=== PATIENT | female | born 1955 | race Caucasian/White ===

== ENCOUNTER 2024-04-17 06:20 | Inpatient (IN) ==
--- NOTE | 2024-04-12 13:13 | Anesthesiology Consultation ---
Date of Service April 12, 2024 Assessment & Plan (1) Encounter for pre-operative examination: Chart Review Chart Review: Acceptable Risk for Surgery and Patient NOT seen in Pre Admission Testing Infectious Disease screening: Per PAT nursing assessment on 04/11/24, No known infectious disease contacts in past 10 days or current infectious disease symptoms. No recent travel outside the country. History Surgery Operation Date: 04/17/24 10:35 Proposed Procedures p T10-L1 Decomrpession and Fusion, L1-L2 Hardware Removal, Spinal Cord Monitoring - Hung Hernandez DO Height/Weight Height: 5 ft 6.5 in Weight: 81.647 kg Allergies Allergy/AdvReac Type Severity Reaction Status Date / Time lidocaine Allergy Severe "ARPIT"-THROAT Verified 04/11/24 08:37 EDEMA,ELEV.HR procaine Allergy Severe NOVOCAINE Verified 04/11/24 08:37 etodolac AdvReac Mild GI UPSET Verified 04/11/24 08:37 Medications Home Medications Medication Instructions Recorded Confirmed Last Taken Keto Gummies 1 gummy PO BID 04/11/24 04/11/24 Unknown amitriptyline 50 mg tablet 50 mg PO HS 04/11/24 04/11/24 Unknown aspirin 81 mg capsule 81 mg PO QPM 04/11/24 04/11/24 Unknown baclofen 20 mg tablet 20 mg PO TID 04/11/24 04/11/24 Unknown carvedilol 3.125 mg tablet 3.125 mg PO BID 04/11/24 04/11/24 Unknown cholecalciferol (vitamin D3) 125 125 mcg PO QAM 04/11/24 04/11/24 Unknown mcg (5,000 unit) tablet (Vitamin D3) diphenhydramine HCl 25 mg tablet 25 mg PO BID 04/11/24 04/11/24 Unknown (Allergy Relief (diphenhydramine)) duloxetine 60 mg capsule,delayed 60 mg PO BID 04/11/24 04/11/24 Unknown release empagliflozin 25 mg tablet 25 mg PO HS 04/11/24 04/11/24 Unknown (Jardiance) gabapentin 400 mg capsule 400 mg PO TID 04/11/24 04/11/24 Unknown hydrocodone 7.5 mg-acetaminophen 1 tab PO Q8H PRN Pain 04/11/24 04/11/24 Unknown 325 mg tablet insulin glargine U-300 conc 300 48 unit subcut HS 04/11/24 04/11/24 Unknown unit/mL (3 mL) subcutaneous pen (Toujeo Max U-300 SoloStar) linaclotide 290 mcg capsule 290 mcg PO QAM 04/11/24 04/11/24 Unknown (Linzess) lisinopril 20 0.5 tab PO QAM 04/11/24 04/11/24 Unknown mg-hydrochlorothiazide 25 mg tablet lovastatin 40 mg tablet 80 mg PO HS 04/11/24 04/11/24 Unknown magnesium oxide 800 mg PO QPM 04/11/24 04/11/24 Unknown meloxicam 15 mg tablet 15 mg PO QAM 04/11/24 04/11/24 Unknown metformin 1,000 mg tablet 1,000 mg PO BID 04/11/24 04/11/24 Unknown montelukast 10 mg tablet 10 mg PO QPM 04/11/24 04/11/24 Unknown omeprazole 20 mg capsule,delayed 20 mg PO BID 04/11/24 04/11/24 Unknown release semaglutide 2 mg/dose (8 mg/3 mL) 2 mg subcut Q7D 04/11/24 04/11/24 Unknown subcutaneous pen injector (Ozempic) sennosides 8.6 mg-docusate sodium 2 tab-cap PO BID PRN Constipation 04/11/24 04/11/24 Unknown 50 mg tablet (Stimulant Laxative Plus) Past Medical History Medical History (Updated 04/12/24 @ 13:38 by Renae Polk PA-C) Aortic regurgitation moderate, stable Aortic stenosis mild per 02/07/24 ECHO Ascending aorta dilation Ascending aorta is dilated at 4.0cm per 02/07/24 ECHO Chronic depression Chronic dyspnea Per 02/07/24 Cardio note "has chronic dyspnea on mild to moderate exertion, resolves in a few moments rest, not present at rest"... "unchanged from baseline, CCS Class II-III with normal nuclear stress test 12/2021, likely 2/2 deconditioning" Diabetes mellitus, type 2 IDDM GERD (gastroesophageal reflux disease) History of anesthesia reaction "was awake often during the anesthesia for the nerve block placement on the base of her skull, had to give her a lot more and then was slow to wake after" Hx of headache "had to have nerve block in the past" Hyperlipidemia Hypertension IBS (irritable bowel syndrome) Psoriasis Sleep apnea CPAP Past Surgical History Surgical History History of ankle surgery left ankle "to remove arthritis" History of total abdominal hysterectomy History of total right knee replacement Hx of bilateral oophorectomy w/bladder tacking surgery Hx of cardiac cath "years ago," [facility]; f/u [facility] Hx of cholecystectomy Hx of colonoscopy Hx of lumbosacral spine surgery ~2012, L4-L5 and tailbone ~2018, L1-L3 Hx of tonsillectomy Social History Smoking Status: Never smoker Do You Dip or Chew Tobacco: No Hx Alcohol Use: Yes alcohol intake frequency: holidays/special occasions only Hx Substance Use: No substance use type: does not use Lab Results Anesthesia Preop Results Results Anesthesia Widget: Na 141 mmol/L (136-145) 04/10/24 K 3.7 mmol/L (3.5-5.1) 04/10/24 Cl 102 mmol/L (98-107) 04/10/24 CO2 33 mmol/L (21-32) H 04/10/24 BUN 17 mg/dl (6-23) 04/10/24 Creat 0.83 mg/dl (0.6-1.2) 04/10/24 Glucose Level 150 mg/dl (70-99(Fasting)) H 04/10/24 PT 10.9 Seconds (9.0-12.0) 04/10/24 PTT 25 Seconds (21-31) 04/10/24 INR 1.0 (0.9-1.1) 04/10/24 HA1c 6.5 % (4.5-5.6) H 04/10/24 Urine Color Yellow 04/10/24 Urine Appearance Clear (Clear) 04/10/24 Urine pH 5.5 (4.5-7.5) 04/10/24 Urine Specific [place] 1.024 (1.000-1.030) 04/10/24 Urine Protein Negative (Negative) 04/10/24 Urine Glucose (UA) 3+ (Negative) H 04/10/24 Urine Ketones Negative (Negative) 04/10/24 Urine Blood Negative (Negative) 04/10/24 Urine Nitrite Negative (Negative) 04/10/24 Urine Bilirubin Negative (Negative) 04/10/24 Urine Urobilinogen Negative (Negative) 04/10/24 Urine Leukocyte Esterase Trace (Negative) H 04/10/24 Urine WBC (Auto) 6-10 /hpf (0-5) H 04/10/24 Urine RBC (Auto) 0-2 /hpf (0-2) 04/10/24 Urine Hyaline Casts (Auto) 0-2 /lpf (0-2) 04/10/24 Urine Epithelial Cells (Auto) 0-2 /hpf (0-2) 04/10/24 Urine Bacteria (Auto) None Seen (None Seen) 04/10/24 Blood Type B Positive 04/10/24 Antibody Screen NEGATIVE 04/10/24 Testing Laboratory Results 04/10/24: urine culture: more than three types of organisms present, all low counts mixed probable skin veda. Chest X-Ray Date: 04/10/24 Findings: + NAD mild bibasilar atelectasis Echocardiogram Date: 02/07/24 EF: 55-60% RWMA: + none Gr I DD. Ascending aorta is dilated at 4.0cm The aortic valve is restricted and thickened. Mod AR. Mild . (ZENAIDA 1.3cm2, mean gradient 11mmHg) Mitral valve is thickened. Mild TR. Stress Test Date: 12/21/21 Type: nuclear Findings: + WNL ECG Response: Non-diagnostic Symptoms EX: Chest discomfort typical of angina SPECT Ischemia: None SPECT Infarct: None LVEF: 63% LV WM: normal Conclusions: Probability of CAD: Relatively low Probability of Ischemia: Relatively low Extent of Ischemia: No significant ischemia Severity of Ischemia: No significant ischemia Risk (Mortality/Coronary Events): Low risk
[2024-04-17] MEDS ORDERED: GLYCOPYRROLATE 0.2 MG/ML VIAL ONE (07:03)
[2024-04-17] MEDS ORDERED: LIDOCAINE 2% 2 ML VIAL/AMP(20MG/ML) INFIL ONE (07:03)
[2024-04-17] MEDS ORDERED: PROPOFOL IV EMULSION 10 MG/ML 20 ML VIAL IV ONE (07:03)
[2024-04-17] MEDS ORDERED: fentaNYL citrate PF 100 MCG/2 ML VIAL ONE ×2 (07:03→08:29)
[2024-04-17] MEDS ORDERED: DEXAMETHASONE SOD INJ 4 MG/ML VIAL ONE (07:03)
[2024-04-17] MEDS ORDERED: MIDAZOLAM HCL 1 MG/ML 2ML VIAL ONE (07:03)
[2024-04-17] MEDS ORDERED: ROCURONIUM BROMIDE 10 MG/ML 5 ML VIAL IV ONE (07:03)
[2024-04-17] MEDS ORDERED: ONDANSETRON INJ 2 MG/ML 2 ML VIAL ONE (07:03)
[2024-04-17] MEDS ORDERED: SUGAMMADEX SODIUM 200 MG/2 ML VIAL IV ONE (07:13)
[2024-04-17] MEDS: ACETAMINOPHEN 500 MG TAB PO SCH (07:13)
[2024-04-17] MEDS: CeleBREX 200 MG CAP PO SCH (07:14)
[2024-04-17] MEDS: LR 15ML/HR IV SCH (07:14)
[2024-04-17] MEDS: GABAPENTIN 300 MG CAP PO SCH (07:14)
--- NOTE | 2024-04-17 07:15 | Anesthesiology Consultation ---
Date of Service April 17, 2024 History Surgery Operation Date: 04/17/24 07:45 Proposed Procedures p T10-L1 Decomrpession and Fusion, L1-L2 Hardware Removal, Spinal Cord Monitoring - Hung Hernandez DO Height/Weight Height: 5 ft 6.5 in Weight: 85.5 kg Allergies Allergy/AdvReac Type Severity Reaction Status Date / Time lidocaine Allergy Severe "ARPIT"-THROAT Verified 04/17/24 06:41 EDEMA,ELEV.HR procaine Allergy Severe NOVOCAINE Verified 04/17/24 06:41 etodolac AdvReac Mild GI UPSET Verified 04/17/24 06:41 Medications Home Medications Medication Instructions Recorded Confirmed Last Taken Keto Gummies 1 gummy PO BID 04/11/24 04/17/24 04/13/24 amitriptyline 50 mg tablet 50 mg PO HS 04/11/24 04/17/24 04/16/24 21:30 aspirin 81 mg capsule 81 mg PO QPM 04/11/24 04/17/24 04/16/24 18:00 baclofen 20 mg tablet 20 mg PO TID 04/11/24 04/17/24 04/16/24 21:30 carvedilol 3.125 mg tablet 3.125 mg PO BID 04/11/24 04/17/24 04/17/24 05:30 cholecalciferol (vitamin D3) 125 125 mcg PO QAM 04/11/24 04/17/24 04/16/24 21:30 mcg (5,000 unit) tablet (Vitamin D3) diphenhydramine HCl 25 mg tablet 25 mg PO BID 04/11/24 04/17/24 04/16/24 21:30 (Allergy Relief (diphenhydramine)) duloxetine 60 mg capsule,delayed 60 mg PO BID 04/11/24 04/17/24 04/17/24 05:30 release empagliflozin 25 mg tablet 25 mg PO HS 04/11/24 04/17/24 04/16/24 21:30 (Jardiance) gabapentin 400 mg capsule 400 mg PO TID 04/11/24 04/17/24 04/17/24 05:30 hydrocodone 7.5 mg-acetaminophen 1 tab PO Q8H PRN Pain 04/11/24 04/17/24 04/16/24 21:30 325 mg tablet insulin glargine U-300 conc 300 48 unit subcut HS 04/11/24 04/17/24 04/16/24 21:30 unit/mL (3 mL) subcutaneous pen 48 units (Toujeo Max U-300 SoloStar) linaclotide 290 mcg capsule 290 mcg PO QAM 04/11/24 04/17/24 04/16/24 07:30 (Linzess) lisinopril 20 0.5 tab PO QAM 04/11/24 04/17/24 04/17/24 05:30 mg-hydrochlorothiazide 25 mg tablet lovastatin 40 mg tablet 80 mg PO HS 04/11/24 04/17/24 04/16/24 21:30 magnesium oxide 800 mg PO QPM 04/11/24 04/17/24 04/16/24 18:00 meloxicam 15 mg tablet 15 mg PO QAM 04/11/24 04/17/24 04/15/24 metformin 1,000 mg tablet 1,000 mg PO BID 04/11/24 04/17/24 04/17/24 05:30 montelukast 10 mg tablet 10 mg PO QPM 04/11/24 04/17/24 04/16/24 18:00 omeprazole 20 mg capsule,delayed 20 mg PO BID 04/11/24 04/17/24 04/17/24 05:30 release semaglutide 2 mg/dose (8 mg/3 mL) 2 mg subcut Q7D 04/11/24 04/17/24 04/03/24 subcutaneous pen injector (Ozempic) sennosides 8.6 mg-docusate sodium 2 tab-cap PO BID PRN Constipation 04/11/24 04/17/24 04/10/24 50 mg tablet (Stimulant Laxative Plus) Active Medications Generic Name Dose Route Start Last Admin Trade Name Freq PRN Reason Stop Dose Admin Acetaminophen 1,000 mg 04/17/24 06:00 04/17/24 07:13 Acetaminophen 500 Mg Tab PO 04/17/24 18:00 1,000 mg PREOP ASAD Administration Celecoxib 200 mg 04/17/24 06:00 04/17/24 07:14 Celebrex 200 Mg Cap PO 04/17/24 18:00 200 mg PREOP ASAD Administration Gabapentin 300 mg 04/17/24 06:00 04/17/24 07:14 Gabapentin 300 Mg Cap PO 04/17/24 18:00 300 mg PREOP ASAD Administration Lactated Ringer's 1,000 mls @ 15 mls/hr 04/17/24 06:00 04/17/24 07:14 Lr IV 04/18/24 05:59 15 mls/hr .Q24H ASAD Administration NPO Date Last Intake of Fluids: 04/16/24 Time Last Intake of Fluids: 21:30 Last Intake of Fluids Comment: 30 sip water for meds Date Last Intake of Solids: 04/16/24 Time Last Intake of Solids: 18:00 Past Medical History Medical History Ascending aorta dilation Ascending aorta is dilated at 4.0cm per 02/07/24 ECHO Aortic stenosis mild per 02/07/24 ECHO Aortic regurgitation moderate, stable Chronic dyspnea Per 02/07/24 Cardio note "has chronic dyspnea on mild to moderate exertion, resolves in a few moments rest, not present at rest"... "unchanged from baseline, CCS Class II-III with normal nuclear stress test 12/2021, likely 2/2 deconditioning" History of anesthesia reaction "was awake often during the anesthesia for the nerve block placement on the base of her skull, had to give her a lot more and then was slow to wake after " Hx of headache "had to have nerve block in the past" Chronic depression Sleep apnea CPAP Psoriasis Diabetes mellitus, type 2 IDDM IBS (irritable bowel syndrome) GERD (gastroesophageal reflux disease) Hyperlipidemia Hypertension Past Surgical History Surgical History Hx of cardiac cath "years ago," angina, [facility], no stents; f/u [facility] History of ankle surgery left ankle "to remove arthritis" Hx of lumbosacral spine surgery ~2011, L4-L5 and tailbone ~2018, L1-L3 History of total right knee replacement Hx of bilateral oophorectomy w/bladder tacking surgery History of total abdominal hysterectomy Hx of cholecystectomy Hx of colonoscopy Hx of tonsillectomy Social History Smoking Status: Never smoker Do You Dip or Chew Tobacco: No Hx Alcohol Use: Yes alcohol intake frequency: holidays/special occasions only Hx Substance Use: No substance use type: does not use Physical Exam Vital Signs Last Vital Signs Temp 37 C 04/17/24 06:52 Pulse 91 H 04/17/24 06:52 Resp 20 04/17/24 06:52 BP 153/98 H 04/17/24 06:52 Pulse Ox 94 04/17/24 06:52 O2 Del Method Room Air 04/17/24 06:52 Testing Laboratory Results 04/17/24 06:39 POC Glucose 93 Chest X-Ray Date: 04/10/24 Findings: + NAD mild bibasilar atelectasis Echocardiogram Date: 02/07/24 EF: 55-60% RWMA: + none Gr I DD. Ascending aorta is dilated at 4.0cm The aortic valve is restricted and thickened. Mod AR. Mild . (EZNAIDA 1.3cm2, mean gradient 11mmHg) Mitral valve is thickened. Mild TR. Stress Test Date: 12/21/21 Type: nuclear Findings: + WNL ECG Response: Non-diagnostic Symptoms EX: Chest discomfort typical of angina SPECT Ischemia: None SPECT Infarct: None LVEF: 63% LV WM: normal Conclusions: Probability of CAD: Relatively low Probability of Ischemia: Relatively low Extent of Ischemia: No significant ischemia Severity of Ischemia: No significant ischemia Risk (Mortality/Coronary Events): Low risk
[2024-04-17] MEDS ORDERED: ATROPINE SULFATE 0.1 MG/ML 10ML SYR IV PRN (07:18)
[2024-04-17] MEDS ORDERED: ePHEDrine sulfate 50 MG/ML AMP IV PRN (07:18)
[2024-04-17] MEDS ORDERED: HYDROmorphone INJ 1 MG/ML SYRINGE IV PRN (07:18)
[2024-04-17] MEDS ORDERED: DROPERIDOL 5 MG/2 ML VIAL IV PRN (07:18)
--- NOTE | 2024-04-17 07:38 | History & Physical Bridge Note ---
Date of Service April 17, 2024 History & Physical Bridge Note I have examined the patient, reviewed the History & Physical and in the interval since the performance of the History & Physical I have noted the following changes of clinical significance: no changes noted
--- NOTE | 2024-04-17 07:39 | History & Physical Report ---
Date of Service April 17, 2024 Assessment & Plan (1) Neurogenic claudication due to lumbar spinal stenosis: Plan: T10-L1 decompression and fusion, L1-L2 hardware removal History of Present Illness Chief Complaint: Back and leg pain Primary Care Provider: Sirisha Gonzalez PA-C This is a 69-year-old female presents with chronic persistent back and leg pain after failing course of nonoperative care she is here for surgical intervention. Allergies Allergy/AdvReac Type Severity Reaction Status Date / Time lidocaine Allergy Severe "ARPIT"-THROAT Verified 04/17/24 06:41 EDEMA,ELEV.HR procaine Allergy Severe NOVOCAINE Verified 04/17/24 06:41 etodolac AdvReac Mild GI UPSET Verified 04/17/24 06:41 Home Medications Medication Instructions Recorded Confirmed Type Keto Gummies 1 gummy PO BID 04/11/24 04/17/24 History amitriptyline 50 mg tablet 50 mg PO HS 04/11/24 04/17/24 History aspirin 81 mg capsule 81 mg PO QPM 04/11/24 04/17/24 History baclofen 20 mg tablet 20 mg PO TID 04/11/24 04/17/24 History carvedilol 3.125 mg tablet 3.125 mg PO BID 04/11/24 04/17/24 History cholecalciferol (vitamin D3) 125 125 mcg PO QAM 04/11/24 04/17/24 History mcg (5,000 unit) tablet (Vitamin D3) diphenhydramine HCl 25 mg tablet 25 mg PO BID 04/11/24 04/17/24 History (Allergy Relief (diphenhydramine)) duloxetine 60 mg capsule,delayed 60 mg PO BID 04/11/24 04/17/24 History release empagliflozin 25 mg tablet 25 mg PO HS 04/11/24 04/17/24 History (Jardiance) gabapentin 400 mg capsule 400 mg PO TID 04/11/24 04/17/24 History hydrocodone 7.5 mg-acetaminophen 1 tab PO Q8H PRN Pain 04/11/24 04/17/24 History 325 mg tablet insulin glargine U-300 conc 300 48 unit subcut HS 04/11/24 04/17/24 History unit/mL (3 mL) subcutaneous pen (Toujeo Max U-300 SoloStar) linaclotide 290 mcg capsule 290 mcg PO QAM 04/11/24 04/17/24 History (Linzess) lisinopril 20 0.5 tab PO QAM 04/11/24 04/17/24 History mg-hydrochlorothiazide 25 mg tablet lovastatin 40 mg tablet 80 mg PO HS 04/11/24 04/17/24 History magnesium oxide 800 mg PO QPM 04/11/24 04/17/24 History meloxicam 15 mg tablet 15 mg PO QAM 04/11/24 04/17/24 History metformin 1,000 mg tablet 1,000 mg PO BID 04/11/24 04/17/24 History montelukast 10 mg tablet 10 mg PO QPM 04/11/24 04/17/24 History omeprazole 20 mg capsule,delayed 20 mg PO BID 04/11/24 04/17/24 History release semaglutide 2 mg/dose (8 mg/3 mL) 2 mg subcut Q7D 04/11/24 04/17/24 History subcutaneous pen injector (Ozempic) sennosides 8.6 mg-docusate sodium 2 tab-cap PO BID PRN Constipation 04/11/24 04/17/24 History 50 mg tablet (Stimulant Laxative Plus) Past Med/Surg History Problem List (Updated 04/17/24 @ 07:39 by Hung Hernandez DO) Neurogenic claudication due to lumbar spinal stenosis Encounter for pre-operative examination Medical History (Updated 04/17/24 @ 07:39 by Hung Hernandez DO) Ascending aorta dilation Ascending aorta is dilated at 4.0cm per 02/07/24 ECHO Aortic stenosis mild per 02/07/24 ECHO Aortic regurgitation moderate, stable Chronic dyspnea Per 02/07/24 Cardio note "has chronic dyspnea on mild to moderate exertion, resolves in a few moments rest, not present at rest"... "unchanged from baseline, CCS Class II-III with normal nuclear stress test 12/2021, likely 2/2 deconditioning" History of anesthesia reaction "was awake often during the anesthesia for the nerve block placement on the base of her skull, had to give her a lot more and then was slow to wake after" Hx of headache "had to have nerve block in the past" Chronic depression Sleep apnea CPAP Psoriasis Diabetes mellitus, type 2 IDDM IBS (irritable bowel syndrome) GERD (gastroesophageal reflux disease) Hyperlipidemia Hypertension Surgical History Hx of cardiac cath "years ago," angina, [facility], no stents; f/u [facility] History of ankle surgery left ankle "to remove arthritis" Hx of lumbosacral spine surgery ~2011, L4-L5 and tailbone ~2018, L1-L3 History of total right knee replacement Hx of bilateral oophorectomy w/bladder tacking surgery History of total abdominal hysterectomy Hx of cholecystectomy Hx of colonoscopy Hx of tonsillectomy Social History Smoking Status: Never smoker Second Hand Exposure: Yes (hx); Do You Dip or Chew Tobacco: No; Tobacco Cessation Education Requested by Patient: No Hx Alcohol Use: Yes Hx Substance Use: No Preferred Language: [place]an Communication Ability: Effective Neurology Stroke Physician Required: No Beliefs That Will Affect Care: None Current Living Situation: Spouse Other Information That Helps Us Care for You: No Feels Safe at Home: Yes Safety Concerns: Feels Safe At This Time Assistive Devices: Denture - Upper, Glasses and Walker Assistive Devices Comment: partial upper denture Physical Exam Physical Exam: Patient is alert and oriented Heart regular rhythm Lungs clear Results & Data Results & Data Vital Signs (Past 12 Hours) Vital Signs Temp Pulse Resp BP Pulse Ox O2 Del Method 04/17/24 06:52 Room Air 04/17/24 06:52 37 C 91 H 20 153/98 H 94 Room Air
[2024-04-17] MEDS ORDERED: PHENYLEPHRINE HCL 25 MG/250 ML NSS IV ONE (07:40)
[2024-04-17] MEDS: ceFAZolin 2000MG 2,000 MG/15 ML SYR IV SCH ×2 (07:45→16:50)
[2024-04-17] MEDS: BUPIVACAINE/EPINEPHRINE 0.25% 1:200,000 30 ML VIAL ONE (08:39)
[2024-04-17] MEDS: ceFAZolin 330 MG/ML 1 GM VIAL ONE (08:40)
[2024-04-17] MEDS: FLOSEAL HEMOSTATIC MATRIX 10ML TOP ONE (10:16)
--- NOTE | 2024-04-17 10:28 | Operative Report ---
Post Operative Report Pre & Post Diagnosis Operation Date: 04/17/24 07:45 Pre-Op Diagnosis: Neurogenic claudication due to lumbar spinal stenosis Post-Op Diagnosis: Neurogenic claudication due to lumbar spinal stenosis I identified the patient and participated in the time-out.: Yes Procedure Operation Date: 04/17/24 07:45 Actual Procedures #1 removal of posterior instrumentation L1-L2. #2 exploration of fusion L1-L2. #3 decompression T11-T12 and T12-L1. #4 posterior spinal fusion T10-L1. #5 placed posterior instrumentation T10-L2 with connectors. #6 interbody fusion T12-L1. #7 placement of Spira 8 x 22 mm at T12-L1. #8 placement locally harvested morselized autograft posterior gutters. #9 placement infuse collagen sponge combined with Koros in the posterior lateral gutters and os design interbody space. #10 placement of versa wrap of the exposed dura. Surgeon Hung Hernandez, Manager Entry Haylee Christensen Estimated Blood Loss 250 Findings Consistent with Post-Op Diagnosis Specimens None Indications This is a 69-year-old female who presents publish diagnosis of failed course of nonoperative care is here for surgical invention. Description of Procedure Patient was met with identified informed consent obtained. Patient was then taken to the operative suite underwent intubation placed in a prone position on the Yair table top the Mainor frame. All bony promises well-padded eyes inspected to ensure no external pressure placed upon the. This point the thor acolumbar spine was prepped and draped in the normal sterile fashion. Sharp dissection with the assistance of Bovie cautery from down to and exposing the lamina transverse processes of [id number] and instrumentation at L1-L2 bilaterally. I then proceeded move the hardware at L1-L2 including the connector. Explored the fusion mass at this level noting it being mature and intact. I then performed a complete laminectomy of T12 with bilateral medial facetectomies and foraminotomies addressing severe spinal stenosis followed by partial laminectomy of T11 with bilateral medial facetectomies. Pedicle screws then placed in [id number] L1-L2 bilaterally with assistance of fluoroscopy. By way of transforaminal approach and right a complete discectomy of T12-L1 was performed endplates guarded to subcortical bleeding bone and an 8 x 22 mm Spira cage filled with os designed tapped in position. The proper size rods were then contoured and placed attaching to a connector at the L 2 L3 level and locked into position. The transverse processes of T11-T12 L1-L2 were then burred to subcortical bleeding bone. Infuse collagen sponge combined with Koros and local autograft placed in the posterior gutters. Versa wrap placed over the exposed dura. 15 round CHERELLE drain inserted. This incision was then closed with 1 Vicryl fascia 2-0 Vicryl subcutaneously and 4 Monocryl for final skin closure. Steri- Strips sterile dressing placed. Patient waken taken PACU stable condition. Please note spinal cord monitoring visualized at the procedure no changes noted. Haylee Christensen is present at the entire surgery and while the patient positioning complex portions of the surgery and final skin closure. Im ordering 20 grams of [place] Collagen Powder (ClearFit [id number]) to treat an incision wound that was caused by a spine procedure. The incision is approximately 2 cm(W) x 4 cm(L) into the joint (D) in size and is a full thickness wound. [place] collagen comes in 1 gram packets so 20 packets were ordered. Given the size of the wound, with light to moderate exudate I chose to order a 20 day supply. The patient will be provided instructions for proper application of the collagen wound kit. The patient will be asked to apply the collagen powder daily and then cover it with sterile dressings dispensed. Collagen was selected as I expect the collagen to attract monocytes and fibroblasts, act as a sacrificial substrate for MMPs, and ultimately proved a matrix for tissue and vessel growth. The collagen will act as a primary dressing in this scenario. It is medically necessary for proper healing of these wounds to improve bioavailability and contact with each wound surface, this is also to help prevent infection of wounds and promote healing ultimately leading to a better healing outcome and limit the risk of infection. I attest to the content of the Intraoperative Record and any orders documented therein. Any exceptions are noted below.
--- NOTE | 2024-04-17 10:35 | Fluoroscopy Report ---
FL thoracic spine 2V CLINICAL HISTORY: T10-L1 DECOMP AND FUSION COMPARISON STUDY: None. FLUOROSCOPY TIME: 25.2 seconds. Ka,r : 19.27 mGy FLUOROSCOPIC IMAGES: 2 FINDINGS: Exact localization is difficult given partial visualization of the lumbar spine. These imag es demonstrate interbody spacer at one level as well as a multilevel decompression and fusion. Visual ized portions of the hardware are intact. IMPRESSION: Fluoroscopy provided during multilevel decompression and fusion, as described above. ACT 112: Negative or not required by law. Electronically signed by: Jonah Alford M.D. 04/17/2024 10:33 AM
[2024-04-17] MEDS ORDERED: PHENYLEPHRINE/NSS 25 MG/250 ML BAG IV PRN (10:51)
[2024-04-17] MEDS ORDERED: PHARMACY GLYCEMIC MGMT CONSULT PRN (12:55)
[2024-04-17] MEDS ORDERED: LORazepam 0.5 MG TAB PO PRN (12:55)
[2024-04-17] MEDS ORDERED: FAMOTIDINE 20 MG TAB PO PRN (12:55)
[2024-04-17] MEDS ORDERED: hydrOXYzine HCl 25 MG TAB PO PRN (12:55)
[2024-04-17] MEDS ORDERED: ALUMINUM/MAGNESIUM SUSP 30 ML UDC PO PRN (12:55)
[2024-04-17] MEDS ORDERED: LORazepam 2 MG/1 ML VIAL IV PRN (12:55)
[2024-04-17] MEDS ORDERED: PROMETHAZINE 12.5 MG/50.5 ML BAG IV PRN (12:55)
[2024-04-17] MEDS ORDERED: METOCLOPRAMIDE HCL INJ 5 MG/ML 2 ML VIAL IV PRN (12:55)
[2024-04-17] MEDS ORDERED: ONDANSETRON 4 MG OD TAB PO PRN (12:55)
[2024-04-17] MEDS ORDERED: DO NOT ADMINISTER PNEUMOCOCCAL VACCINE PRN (12:55)
[2024-04-17] MEDS ORDERED: diphenhydrAMINE Capsule 25 MG CAP PO PRN (12:55)
[2024-04-17] MEDS ORDERED: NALOXONE HCL 0.4 MG/1 ML VIAL/CARP IV PRN (12:55)
[2024-04-17] MEDS ORDERED: DO NOT ADMINISTER FLU VACCINE PRN (12:55)
[2024-04-17] MEDS ORDERED: traMADol HCL 50 MG TABLET PO PRN (12:55)
[2024-04-17] MEDS ORDERED: SOD PHOSPHATE/SOD BIPHOSPHATE ENEMA 132 ML BTL PR PRN (12:55)
[2024-04-17] MEDS ORDERED: GLUCAGON FOR INJ 1 MG VIAL SQ PRN (13:02)
[2024-04-17] MEDS ORDERED: GLUCOSE 40% GEL 15 GM TUBE PO PRN (13:02)
[2024-04-17] MEDS ORDERED: CARBOHYDRATES FOR HYPOGLYCEMIA PO PRN (13:02)
[2024-04-17] MEDS ORDERED: DEXTROSE 50% 50 ML SYRINGE IV PRN (13:02)
[2024-04-17] MEDS ORDERED: GLUCOSE 10 TAB/TUBE PO PRN (13:02)
--- NOTE | 2024-04-17 13:40 | Anesthesiology Progress Note ---
Date of Service April 17, 2024 Anesthesia Post Procedure Vital Signs Vital Signs: Temp Pulse Pulse Resp BP Pulse Ox O2 Del Method 04/17/24 13:06 36.3 C L 91 H 16 120/76 95 Oxymask 04/17/24 12:20 85 16 103/61 95 Oxymask 04/17/24 12:05 86 12 115/71 94 Oxymask 04/17/24 11:55 88 12 125/67 92 Nasal Cannula 04/17/24 11:45 86 13 101/66 93 Nasal Cannula 04/17/24 11:35 87 12 105/61 94 Oxymask 04/17/24 11:25 37.1 C 88 14 112/60 95 Oxymask 04/17/24 11:15 89 12 115/63 95 Oxymask 04/17/24 11:05 89 12 124/55 L 98 Oxymask 04/17/24 10:55 84 14 115/63 99 Oxymask 04/17/24 10:45 78 12 104/56 L 93 Oxymask 04/17/24 10:42 91/51 L 04/17/24 10:38 36.7 C 78 10 L 67/47 L 95 Oxymask 04/17/24 06:52 Room Air 04/17/24 06:52 37 C 91 H 20 153/98 H 94 Room Air O2 Flow Rate 04/17/24 13:06 04/17/24 12:20 3 04/17/24 12:05 3 04/17/24 11:55 4 04/17/24 11:45 4 04/17/24 11:35 3 04/17/24 11:25 3 04/17/24 11:15 4 04/17/24 11:05 4 04/17/24 10:55 10 04/17/24 10:45 10 04/17/24 10:42 04/17/24 10:38 10 04/17/24 06:52 04/17/24 06:52 Pain Intensity Back: Pain Intensity: 9 Transfer of Care Handoff Completed per policy Notes Mental Status: alert / awake / arousable and participated in evaluation Nausea / Vomiting: adequately controlled Pain: adequately controlled Airway Patency, RR, SpO2: stable & adequate BP & HR: stable & adequate Hydration State: stable & adequate Anesthetic Complications: no major complications apparent and Pt Satisfied with anesthetic care
--- NOTE | 2024-04-17 13:51 | Consultation ---
Date of Consultation April 17, 2024 Assessment & Plan (1) Neurogenic claudication due to lumbar spinal stenosis: (2) Diabetes mellitus, type 2: (3) Hypertension: (4) Hyperlipidemia: (5) Sleep apnea: Plan This is a 69-year-old female who has a significant past medical history of T2DM, HTN, HLD, aortic stenosis, TY, psoriasis who presents for elective thoracic surgery by Dr. Hernandez. Thoracic/Lumbar spinal stenosis with neurogenic claudication S/P T10-T11 Fusion with L1-L2 hardware removal by Dr. Hernandez, POD # 0 EBL 250ml, CHERELLE drain 95ml pain/wound management per ortho activity and therapy as directed by ortho pre op hgb unknown as I do not see a CBC done pre op in our system T2DM, controlled a1c 6.5 pre op hold jardiance and metformin, she is on 48 Units of Toujeo at HS continue lantus/novolog per protocol, glycemic pharmacy on board appreciate their management TY: CPAP at HS HTN: Bp controlled, continue coreg with parameters, hold lisinopril/hctz until pressure reassessed in a.m HLD: Chronic, stable, continue statin Valvular heart disease/Enlargement of thoracic aortic: follows cardiology [facility] Dr. Bosch, pre op echo reviewed. Depression: chronic, stable on Cymbalta and amitriptyline DVT ppx: per primary FULL CODE PCP: Sirisha Gonzalez PA-C Dispo: per primary Pt was seen and examined in collaboration with Dr. Garza, please see addendum Thank you for this consultation. We will follow the patient with you during their hospital stay. You can reach a member of the [facility] Hospitalist Team 24/01 via hospitalist role on tiger text. I spent a total of 46 minutes minutes reviewing notes, outpatient records, labs, medication, coordinating, documenting and providing care for this patient excluding time spent in the performance of separately billed services. Supervising Physician Co-Signing Physician Notes 69-year-old female with a history of diastolic dysfunction, diabetes mellitus type 2, obstructive sleep apnea, hypertension, hyperlipidemia and aortic stenosis. Patient is status post T10'sL1 laminectomy and decompression surgery. Patient is seen postop today. Her is present. She is having some nausea and some postoperative incisional pain. She has just been medicated for both. She denies chest pain or shortness of breath currently. She does have a Venturi mask in place currently. General- adult female seen at bedside with her spouse present. Head- atraumatic Eyes- PERRL, EOMI, anicteric ENT- oropharynx clear Neck- supple, no JVD, no adenopathy, no thyromegaly; carotids +2/2, no bruits appreciated Lungs- clear to auscultation and percussion Heart- regular rhythm; no murmur, no gallop, no rub appreciated Abdomen- normal bowel sounds, soft, nontender, no masses or hepatosplenomegaly Extremities- no pretibial edema, no calf tenderness; peripheral pulses intact Neuro- alert, oriented x 3; PERRL, EOMI; she has good sensation in both toes bilaterally Skin- warm & dry Chart and data reviewed. Total of 22 minutes spent in the care of this patient. I agree with the advanced practitioners assessment and plan as outlined above. Thank you Dr. Hernandez for the consult. We will follow. History of Present Illness Requesting Physician: Dr. Hernandez Reason for Consultation: post op med management Attending Physician: Hung Hernandez, History of Present Illness This is a 69-year-old female who has a significant past medical history of T2DM, HTN, HLD, aortic stenosis, TY, psoriasis who presents for elective thoracic surgery by Dr. Hernandez. She underwent a T10-L1 decompression fusion along with L1-L2 hardware removal. Her medical and cardiology clearance notes were reviewed. She follows with Dr. Bosch of [facility] for cardiology. She had echocardiogram on 02/07/2024 which revealed normal LVEF, mild aortic stenosis and moderate aortic regurgitation, dilated ascending aorta at 4.0 cm and grade 1 diastolic dysfunction. Allergies Allergy/AdvReac Type Severity Reaction Status Date / Time lidocaine Allergy Severe "ARPIT"-THROAT Verified 04/17/24 06:41 EDEMA,ELEV.HR procaine Allergy Severe NOVOCAINE Verified 04/17/24 06:41 etodolac AdvReac Mild GI UPSET Verified 04/17/24 06:41 Home Medications Medication Instructions Recorded Confirmed Type Keto Gummies 1 gummy PO BID 04/11/24 04/17/24 History amitriptyline 50 mg tablet 50 mg PO HS 04/11/24 04/17/24 History aspirin 81 mg capsule 81 mg PO QPM 04/11/24 04/17/24 History baclofen 20 mg tablet 20 mg PO TID 04/11/24 04/17/24 History carvedilol 3.125 mg tablet 3.125 mg PO BID 04/11/24 04/17/24 History cholecalciferol (vitamin D3) 125 125 mcg PO QAM 04/11/24 04/17/24 History mcg (5,000 unit) tablet (Vitamin D3) diphenhydramine HCl 25 mg tablet 25 mg PO BID 04/11/24 04/17/24 History (Allergy Relief (diphenhydramine)) duloxetine 60 mg capsule,delayed 60 mg PO BID 04/11/24 04/17/24 History release empagliflozin 25 mg tablet 25 mg PO HS 04/11/24 04/17/24 History (Jardiance) gabapentin 400 mg capsule 400 mg PO TID 04/11/24 04/17/24 History hydrocodone 7.5 mg-acetaminophen 1 tab PO Q8H PRN Pain 04/11/24 04/17/24 History 325 mg tablet insulin glargine U-300 conc 300 48 unit subcut HS 04/11/24 04/17/24 History unit/mL (3 mL) subcutaneous pen (Toujeo Max U-300 SoloStar) linaclotide 290 mcg capsule 290 mcg PO QAM 04/11/24 04/17/24 History (Linzess) lisinopril 20 0.5 tab PO QAM 04/11/24 04/17/24 History mg-hydrochlorothiazide 25 mg tablet lovastatin 40 mg tablet 80 mg PO HS 04/11/24 04/17/24 History magnesium oxide 800 mg PO QPM 04/11/24 04/17/24 History meloxicam 15 mg tablet 15 mg PO QAM 04/11/24 04/17/24 History metformin 1,000 mg tablet 1,000 mg PO BID 04/11/24 04/17/24 History montelukast 10 mg tablet 10 mg PO QPM 04/11/24 04/17/24 History omeprazole 20 mg capsule,delayed 20 mg PO BID 04/11/24 04/17/24 History release semaglutide 2 mg/dose (8 mg/3 mL) 2 mg subcut Q7D 04/11/24 04/17/24 History subcutaneous pen injector (Ozempic) sennosides 8.6 mg-docusate sodium 2 tab-cap PO BID PRN Constipation 04/11/24 04/17/24 History 50 mg tablet (Stimulant Laxative Plus) oxycodone 5 mg tablet 5 mg PO Q6H PRN pain #30 tabs 04/17/24 Rx tramadol 50 mg tablet 50 mg PO Q6H PRN pain, moderate 04/17/24 Rx #30 tabs Patient History Medical History Ascending aorta dilation Ascending aorta is dilated at 4.0cm per 02/07/24 ECHO Aortic stenosis mild per 02/07/24 ECHO Aortic regurgitation moderate, stable Chronic dyspnea Per 02/07/24 Cardio note "has chronic dyspnea on mild to moderate exertion, resolves in a few moments rest, not present at rest"... "unchanged from baseline, CCS Class II-III with normal nuclear stress test 12/2021, likely 2/2 deconditioning" History of anesthesia reaction "was awake often during the anesthesia for the nerve block placement on the base of her skull, had to give her a lot more and then was slow to wake after" Hx of headache "had to have nerve block in the past" Chronic depression Sleep apnea CPAP Psoriasis Diabetes mellitus, type 2 IDDM IBS (irritable bowel syndrome) GERD (gastroesophageal reflux disease) Hyperlipidemia Hypertension Surgical History Hx of cardiac cath "years ago," angina, [facility], no stents; f/u [facility] cardio History of ankle surgery left ankle "to remove arthritis" Hx of lumbosacral spine surgery ~2011, L4-L5 and tailbone ~2018, L1-L3 History of total right knee replacement Hx of bilateral oophorectomy w/bladder tacking surgery History of total abdominal hysterectomy Hx of cholecystectomy Hx of colonoscopy Hx of tonsillectomy Social History Smoking Status: Never smoker Second Hand Exposure: Yes (hx); Do You Dip or Chew Tobacco: No; Tobacco Cessation Education Requested by Patient: No Hx Alcohol Use: Yes Hx Substance Use: No Preferred Language: Tuvaluan Communication Ability: Effective Membership Assistant Required: No Beliefs That Will Affect Care: None Current Living Situation: Spouse Other Information That Helps Us Care for You: No Feels Safe at Home: Yes Safety Concerns: Feels Safe At This Time Assistive Devices: Denture - Upper, Glasses and Walker Assistive Devices Comment: partial upper denture Review of Systems Review of Systems: All systems reviewed & are unremarkable except as noted in HPI & below Physical Exam Physical Exam: Constitutional: WD/WN, vitals as above, NAD, sitting up in bed, pleasant, conversing easily Head: Normocephalic, Atraumatic Eyes: PERRL, conjunctivae normal, anicteric sclerae ENMT: external ear and nose normal, oropharynx normal Neck: trachea midline, no thyromegaly normal visual inspection Respiratory: normal respiratory effort, lungs clear to auscultation, no wheeze, rales, rhonchi. Normal insp/exp effort, no accessory muscle use Cardiovascular: RRR, no murmur, no edema Vessels: no JVD or carotid bruit Chest: normal inspection of chest Abdomen: normal bowel sounds, soft, nontender, no hepatosplenomegaly Musculoskeletal: no cyanosis or clubbing, extremities motor strength 5/5 Skin: no rashes, warm and dry normal turgor Neurologic: PERRL, EOMI, accommodation nl, no face palsy, no dysarthria CN's II-XI intact bilaterally and moves all extremities Psychiatric: A+Ox3, euthymic affect Lymphatic: no cervical or axillary lymphadenopathy : deferred Results & Data Vital Signs (Past 12 Hours) Vital Signs Temp Pulse Pulse Resp BP Pulse Ox O2 Del Method 04/17/24 13:06 36.3 C L 91 H 16 120/76 95 Oxymask 04/17/24 12:20 85 16 103/61 95 Oxymask 04/17/24 12:05 86 12 115/71 94 Oxymask 04/17/24 11:55 88 12 125/67 92 Nasal Cannula 04/17/24 11:45 86 13 101/66 93 Nasal Cannula 04/17/24 11:35 87 12 105/61 94 Oxymask 04/17/24 11:25 37.1 C 88 14 112/60 95 Oxymask 04/17/24 11:15 89 12 115/63 95 Oxymask 04/17/24 11:05 89 12 124/55 L 98 Oxymask 04/17/24 10:55 84 14 115/63 99 Oxymask 04/17/24 10:45 78 12 104/56 L 93 Oxymask 04/17/24 10:42 91/51 L 04/17/24 10:38 36.7 C 78 10 L 67/47 L 95 Oxymask 04/17/24 06:52 Room Air 04/17/24 06:52 37 C 91 H 20 153/98 H 94 Room Air O2 Flow Rate 04/17/24 13:06 04/17/24 12:20 3 04/17/24 12:05 3 04/17/24 11:55 4 04/17/24 11:45 4 04/17/24 11:35 3 04/17/24 11:25 3 04/17/24 11:15 4 04/17/24 11:05 4 04/17/24 10:55 10 04/17/24 10:45 10 04/17/24 10:42 04/17/24 10:38 10 04/17/24 06:52 04/17/24 06:52 Laboratory Results preop lab work reviewed from 04/10/2024 which revealed an A1c of 6.5, normal PT/INR, generally unremarkable chemistry panel. Her urinalysis was consistent with +3 glucose and trace leukocyte esterase. No bacteria. Diagnostic Findings Thoracic Spine X-Ray 04/17/24 07:45 FL thoracic spine 2V CLINICAL HISTORY: T10-L1 DECOMP AND FUSION COMPARISON STUDY: None. FLUOROSCOPY TIME: 25.2 seconds. Ka,r : 19.27 mGy FLUOROSCOPIC IMAGES: 2 FINDINGS: Exact localization is difficult given partial visualization of the lumbar spine. These images demonstrate interbody spacer at one level as well as a multilevel decompression and fusion. Visualized portions of the hardware are intact. IMPRESSION: Fluoroscopy provided during multilevel decompression and fusion, as described above. ACT 112: Negative or not required by law. Electronically signed by: Jonah Alford M.D. 04/17/2024 10:33 AM Preoperative chest x-ray was negative for active disease in the chest Medications Administered Current Inpatient Medications Acetaminophen (Acetaminophen 500 Mg Tab) 1,000 mg PO PREOP ASAD Stop: 04/17/24 18:00 Last Admin: 04/17/24 07:13 Dose: 1,000 mg Acetaminophen (Acetaminophen 500 Mg Tab) 1,000 mg PO Q8H PRN PRN Reason: MILD Pain Scale 1,2,3 & Pre PT Stop: 05/17/24 12:54 Al Hydrox/Mg Hydrox/Simethicone (Aluminum/Magnesium Susp 30 Ml Udc) 30 ml PO Q6H PRN PRN Reason: Dyspepsia Stop: 05/17/24 12:54 Amitriptyline HCl (Amitriptyline Hcl 50 Mg Tab) 50 mg PO HS ASAD Stop: 05/17/24 20:59 Aspirin (Aspirin 81 Mg Ectab) 81 mg PO QPM ASAD Stop: 05/17/24 20:59 Atropine Sulfate (Atropine Sulfate 0.1 Mg/Ml 10ml Syr) 0.5 mg IV Q1M PRN PRN Reason: PACU Use-HR<40 &/or Bradycardi Stop: 04/17/24 15:18 Baclofen (Baclofen 20 Mg Tab) 20 mg PO TID ASAD Stop: 05/17/24 13:59 Bisacodyl (Bisacodyl 10 Mg Supp) 10 mg KS DAILY PRN PRN Reason: Constipation Stop: 05/17/24 12:54 Carvedilol (Carvedilol 3.125 Mg Tab) 3.125 mg PO BIDM ASAD Stop: 05/17/24 16:59 Celecoxib (Celebrex 200 Mg Cap) 200 mg PO PREOP ASAD Stop: 04/17/24 18:00 Last Admin: 04/17/24 07:14 Dose: 200 mg Dextrose (Dextrose 50% 50 Ml Syringe) 25 - 50 ml IV UD PRN; Protocol PRN Reason: Hypoglycemia Protocol Stop: 05/17/24 13:01 Diphenhydramine HCl (Diphenhydramine Capsule 25 Mg Cap) 25 mg PO BID ASAD Stop: 05/17/24 20:59 Diphenhydramine HCl (Diphenhydramine Capsule 25 Mg Cap) 25 mg PO Q6H PRN PRN Reason: Allergic Rhinitis/Insomnia Stop: 05/17/24 12:54 Droperidol (Droperidol 5 Mg/2 Ml Vial) 0.625 mg IV ONCE PRN PRN Reason: PACU Use Only for Nausea Stop: 04/17/24 15:19 Duloxetine HCl (Duloxetine Hcl 60 Mg Cap) 60 mg PO BID ASAD Stop: 05/17/24 20:59 Empagliflozin (Empagliflozin 25 Mg Tab) 25 mg PO HS ASAD Stop: 05/17/24 20:59 Ephedrine Sulfate (Ephedrine Sulfate 50 Mg/Ml Amp) 5 mg IV Q5M PRN PRN Reason: PACU Use Only-SBP<90 mmHg Stop: 04/17/24 15:18 Famotidine (Famotidine 20 Mg Tab) 20 mg PO Q12H PRN PRN Reason: Dyspepsia Stop: 05/17/24 12:54 Gabapentin (Gabapentin 300 Mg Cap) 300 mg PO PREOP ASAD Stop: 04/17/24 18:00 Last Admin: 04/17/24 07:14 Dose: 300 mg Gabapentin (Gabapentin 400 Mg Cap) 400 mg PO TID ASAD Stop: 05/17/24 13:59 Glucagon (Glucagon For Inj 1 Mg Vial) 1 mg SQ UD PRN; Protocol PRN Reason: Hypoglycemia Protocol Stop: 05/17/24 13:01 Glucose (Glucose 40% Gel 15 Gm Tube) 15 - 30 gm PO UD PRN; Protocol PRN Reason: Hypoglycemia Protocol Stop: 05/17/24 13:01 Glucose (Glucose 10 Tab/Tube) 4 - 8 tab PO UD PRN; Protocol PRN Reason: Hypoglycemia Treatment Stop: 05/17/24 13:01 Lisinopril/HCTZ (Lisinopril/Hctz 20/25mg 1 Tab) 0.5 tab PO QAM ASAD Stop: 05/18/24 08:59 Hydromorphone HCl (Hydromorphone Inj 1 Mg/Ml Syringe) 0.25 mg IV Q5M PRN PRN Reason: PACU Use Only-Pain Stop: 04/17/24 15:18 Hydromorphone HCl (Hydromorphone Inj 0.5 Mg/0.5 Ml Syr) 0.5 mg IV Q3H PRN PRN Reason: MODERATE Pain (Scale 4,5,6) & Pre PT Stop: 05/01/24 12:54 Hydromorphone HCl (Hydromorphone Inj 1 Mg/Ml Syringe) 1 mg IV Q3H PRN PRN Reason: SEVERE Pain (Scale 7,8,9,10) Stop: 05/01/24 12:54 Hydroxyzine HCl (Hydroxyzine Hcl 25 Mg Tab) 25 mg PO Q8H PRN PRN Reason: Anxiety Stop: 05/17/24 12:54 Lactated Ringer's (Lr) 1,000 mls @ 15 mls/hr IV .Q24H ASAD Stop: 04/18/24 05:59 Last Infusion: 04/17/24 07:43 Dose: Infused Lactated Ringer's (Lr) 1,000 mls @ 60 mls/hr IV .[id number] ASAD Stop: 04/17/24 22:39 Cefazolin Sodium (Ancef 2000mg) 2,000 mg in 15 mls @ 3.75 mls/min IV PREOP ASAD; Protocol Stop: 04/17/24 18:00 Last Admin: 04/17/24 07:45 Dose: 3.75 mls/min Phenylephrine HCl (Phenylephrine/Nss) 25 mg in 250 mls @ 5.13 mls/hr IV .Q24H PRN; Protocol PRN Reason: SBP below 100mmHg Stop: 04/17/24 18:51 Sodium Chloride (Nss) 1,000 mls @ 100 mls/hr IV .Q10H ASAD Stop: 05/17/24 12:54 Acetaminophen (Ofirmev) 1,000 mg in 100 mls @ 400 mls/hr IV Q8H PRN PRN Reason: Pain Rating 1-3 & Pre PT Stop: 04/18/24 12:55 Cefazolin Sodium (Ancef 2000mg) 2,000 mg in 15 mls @ 3.75 mls/min IV Q8H ASAD; Protocol Stop: 04/18/24 00:33 Promethazine HCl (Phenergan) 12.5 mg in 50.5 mls @ 202 mls/hr IV Q6H PRN PRN Reason: Nausea And Vomiting Stop: 05/17/24 12:54 Dexamethasone 6 mg/ Syringe 1.5 mls @ 1 mls/min IV DAILY ASAD Stop: 04/20/24 09:02 Influenza Virus Vaccine Quadrival (Do Not Administer Flu Vaccine) 1 each N/A PRN PRN PRN Reason: Notification Stop: 05/17/24 12:54 Insulin Aspart (Insulin Aspart Per Unit Charge) 0 units SC ACHS ASAD Stop: 05/17/24 16:29 Linaclotide (Linaclotide 145 Mcg Capsule) 290 mcg PO 0700 ASAD Stop: 05/18/24 06:59 Lorazepam (Lorazepam 0.5 Mg Tab) 0.5 mg PO Q8H PRN PRN Reason: Sedation/Anxiety Stop: 05/17/24 12:54 Lorazepam (Lorazepam 2 Mg/1 Ml Vial) 0.5 mg IV Q8H PRN PRN Reason: Sedation/Anxiety Stop: 05/17/24 12:54 Lovastatin (Lovastatin 20 Mg Tab) 80 mg PO HS [facility] Stop: 05/17/24 20:59 Magnesium Hydroxide (Magnesium Hydroxide Susp 30 Ml Udc) 30 ml PO Q24H PRN PRN Reason: Constipation Stop: 05/17/24 12:54 Magnesium Oxide (Magnesium Oxide 400 Mg Tab) 800 mg PO QPM [facility] Stop: 05/17/24 20:59 Metoclopramide HCl (Metoclopramide Hcl Inj 5 Mg/Ml 2 Ml Vial) 10 mg IV Q6H PRN PRN Reason: Nausea &/or Vomiting Stop: 05/17/24 12:54 Miscellaneous (Carbohydrates For Hypoglycemia ) 15 - 30 gm PO UD PRN PRN Reason: Hypoglycemia Protocol Stop: 05/17/24 13:01 Miscellaneous Information (Pharmacy Glycemic Mgmt Consult) 1 each N/A UD PRN PRN Reason: Consult Stop: 05/17/24 12:54 Montelukast Sodium (Montelukast Sodium 10 Mg Tablet) 10 mg PO QPM [facility] Stop: 05/17/24 20:59 Naloxone HCl (Naloxone Hcl 0.4 Mg/1 Ml Vial/Carp) 0.1 mg IV Q5M PRN PRN Reason: Oversedation/Resp depression Stop: 05/17/24 12:54 Ondansetron HCl (Ondansetron Inj 2 Mg/Ml 2 Ml Vial) 4 mg IV Q6H PRN PRN Reason: Nausea &/or Vomiting Stop: 05/17/24 12:54 Ondansetron HCl (Ondansetron 4 Mg Od Tab) 4 mg PO Q6H PRN PRN Reason: Nausea Stop: 05/17/24 12:54 Oxycodone HCl (Oxycodone Hcl Ir 5 Mg Tab (Immediate Release)) 5 - 10 mg PO Q4H PRN PRN Reason: Pain & Pre PT Stop: 05/01/24 12:54 Pantoprazole Sodium (Pantoprazole 40 Mg Tab) 40 mg PO BID [facility]; Protocol Stop: 05/17/24 20:59 Pneumococcal Polyvalent Vaccine (Do Not Administer Pneumococcal Vaccine) 1 each N/A PRN PRN PRN Reason: Notification Stop: 05/17/24 12:54 Polyethylene Glycol (Polyethylene (Miralax) 17 Gm Pack) 17 gm PO Q6 ASAD Stop: 05/18/24 05:59 Senna/Docusate Sodium (Docusate Sodium/Senna 50/8.6mg Tab) 2 tab PO BID PRN PRN Reason: Constipation Stop: 05/17/24 12:54 Senna/Docusate Sodium (Docusate Sodium/Senna 50/8.6mg Tab) 2 tab PO HS ASAD Stop: 05/17/24 20:59 Sodium Biphosphate/Sodium Phosphate (Sod Phosphate/Sod Biphosphate Enema 132 Ml Btl) 132 ml KS ONE PRN PRN Reason: Constipation Stop: 05/17/24 12:54 Tramadol HCl (Tramadol Hcl 50 Mg Tablet) 50 - 100 mg PO Q4H PRN PRN Reason: Moderate-Severe pain & Pre PT Stop: 05/17/24 12:54 Vitamin D (Cholecalciferol 125 Mcg (5,000 Units) Tab) 125 mcg PO QAM ASAD Stop: 05/18/24 08:59 ECG Additional Comments: I have independently reviewed and interpreted patient's admitting EKG which revealed: NSR, 87 bpm, LAD, RBBB, QTC 507ms
[2024-04-17] MEDS: SODIUM CHLORIDE 0.9% 1,000 ML IV SCH (13:56)
[2024-04-17] MEDS: ONDANSETRON INJ 2 MG/ML 2 ML VIAL IV PRN (13:57)
[2024-04-17] MEDS: HYDROmorphone INJ 0.5 MG/0.5 ML SYR IV PRN (13:57)
[2024-04-17] MEDS: ACETAMINOPHEN 1,000 MG/100 ML VIAL IV PRN (14:24)
--- NOTE | 2024-04-17 14:58 | Pharmacy Report ---
Pharmacy Glycemic Short Note 2 - Date of Service April 17, 2024 - Glycemic Short BSG Results (Last 24 hours): 04/17/24 04/17/24 06:39 10:46 POC Glucose 93 99 OUTPATIENT ANTIDIABETIC REGIMEN: * Insulin glargine 48 units QHS * Metformin 1 g BID * Ozempic 2 mg SQ once weekly * Jardiance 25 mg once daily * A1c 6.5% 04/10/24 ASSESSMENT: * KS is here postop for a spine surgery with Dr. Hernandez. Pharmacy has been co nsulted to manage her T2DM while inpatient. PMH includes CAD, IBS, HLD, HTN, Sleep apnea, and psoriasis. * Pt received dexamethasone 8 mg IVP preop, ordered 6 mg daily for the next 3 days. * Pt ordered diet. * BSGs from this morning are in the 90's but expected to raise with IV dexamethasone and diet on board. PLAN FOR INPATIENT GLYCEMIC CONTROL: * Hold outpatient diabetes medications * Basal insulin * Lantus 40 units SQ * Bolus insulin * NovoLog per scale ACHS or Q6hrs while NPO * Goal Range: Low 110 mg/dL - High 140 mg/dL * Correction Factor: 20 mg/dL/unit * Nutritional / Prandial insulin per carb ratio of 1 unit per 6 grams CHO consumed
[2024-04-17] MEDS: BACLOFEN 20 MG TAB PO SCH (15:06)
[2024-04-17] MEDS: GABAPENTIN 400 MG CAP PO SCH (15:06)
[2024-04-17] MEDS: LR 60ML/HR IV SCH (15:19)
[2024-04-17] MEDS: PHENYLEPHRINE 100MCG/ML 5ML SYR ONE (15:20)
[2024-04-17] MEDS: carvediloL 3.125 MG TAB PO SCH (16:57)
[2024-04-17] MEDS: INSULIN ASPART PER UNIT CHARGE SC SCH (17:33)
[2024-04-17] MEDS: HYDROmorphone INJ 1 MG/ML SYRINGE IV PRN (18:16)
[2024-04-17] MEDS: ASPIRIN 81 MG ECTAB PO SCH (20:40)
[2024-04-17] MEDS: AMITRIPTYLINE HCL 50 MG TAB PO SCH (20:40)
[2024-04-17] MEDS: diphenhydrAMINE Capsule 25 MG CAP PO SCH (20:41)
[2024-04-17] MEDS: DOCUSATE SODIUM/SENNA 50/8.6MG TAB PO SCH (20:42)
[2024-04-17] MEDS: DULoxetine HCL 60 MG CAP PO SCH (20:42)
[2024-04-17] MEDS: LOVASTATIN 20 MG TAB PO SCH (20:43)
[2024-04-17] MEDS: MAGNESIUM OXIDE 400 MG TAB PO SCH (20:44)
[2024-04-17] MEDS: PANTOprazole 40 MG TAB PO SCH (20:46)
[2024-04-17] MEDS: MONTELUKAST SODIUM 10 MG TABLET PO SCH (20:46)
[2024-04-17] MEDS ORDERED: EMPAGLIFLOZIN 25 MG TAB PO SCH (21:00)
[2024-04-17] MEDS: LANTUS PER UNIT CHARGE SQ SCH (21:38)
[2024-04-18] MEDS: oxyCODONE HCL IR 5 MG TAB (IMMEDIATE RELEASE) PO PRN (00:03)
[2024-04-18] MEDS: POLYETHYLENE (MIRALAX) 17 GM PACK PO SCH (06:15)
[2024-04-18] MEDS: LINACLOTIDE 145 MCG CAPSULE PO SCH (06:16)
[2024-04-18 07:07] LABS: Basophils # (auto) 0.05 K/uL (0.00-0.20); Basophils % (auto) 0.4 %; Eosinophils # (auto) 0.06 K/uL (0.00-0.50); Eosinophils % (auto) 0.5 %; Hematocrit (blood only) 31.7 % (37.0-47.0); Hemoglobin 10.2 g/dl (12.0-16.0); Immature Granulocytes # (auto) 0.05 K/uL (0.01-0.20); Immature Granulocytes % (auto) 0.4 %; Lymphocytes # (auto) 2.65 K/uL (1.20-3.40); Lymphocytes % (auto) 21.3 %; Mean Corpuscular Hemoglobin 29.1 pg (25.0-34.0); Mean Corpuscular Hgb Conc 32.2 g/dL (32.0-36.0); Mean Corpuscular Volume 90.3 fL (80.0-100.0); Monocytes # (auto) 1.23 K/uL (0.11-0.59); Monocytes % (auto) 9.9 %; Neutrophils % (auto) 67.5 %; Platelet Count 227 K/uL (130-400); RDW Coefficient of Variation 14.9 % (11.5-14.5); RDW Standard Deviation 49.2 fL (36.4-46.3); Red Blood Count 3.51 M/uL (4.20-5.40); White Blood Count 12.44 K/ul (4.8-10.8)
[2024-04-18 07:18] LABS: BUN Creatinine Ratio 24.4 (10-20); Calcium 8.3 mg/dl (8.6-10.3); Creatinine Clr Calc Pharmacy 74.7 ml/min; Potassium 3.7 mmol/L (3.5-5.1)
[2024-04-18] MEDS: ACETAMINOPHEN 500 MG TAB PO PRN (07:31)
--- NOTE | 2024-04-18 08:26 | Orthopedic Progress Note ---
Date of Service April 18, 2024 Assessment & Plan (1) Neurogenic claudication due to lumbar spinal stenosis: Plan: At this time initiate physical therapy monitor her CHERELLE output anticipate discharge home in the next few days. Admission and Anticipated Discharge Date Admission Date: April 17, 2024 Subjective Back pain controlled leg symptoms improved Physical Exam Physical Exam: Patient is in bed at this time. Discussed when to testing. Was comfortable. Results & Data Vital Signs (Past 12 Hours) Vital Signs Temp Pulse Resp BP Pulse Ox O2 Del Method O2 Flow Rate 04/18/24 07:33 36.5 C 100 H 18 109/70 98 Nasal Cannula 2.0 04/18/24 04:00 36.3 C L 93 H 18 100/62 94 Nasal Cannula 2 04/18/24 00:00 36.6 C 96 H 16 117/71 96 Nasal Cannula 2 04/17/24 21:30 36.5 C 96 H 16 106/73 95 Nasal Cannula 2
[2024-04-18] MEDS: dexAMETHasone 6 MG in SYRINGE 0 ML IV SCH (08:36)
[2024-04-18] MEDS: CHOLECALCIFEROL 125 MCG (5,000 UNITS) TAB PO SCH (08:38)
[2024-04-18] MEDS ORDERED: LISINOPRIL/HCTZ 20/25MG 1 TAB PO SCH (09:00)
--- NOTE | 2024-04-18 12:53 | Pharmacy Report ---
Pharmacy Glycemic Short Note 2 - Date of Service April 18, 2024 - Glycemic Short BSG Results (Last 24 hours): 04/17/24 04/17/24 04/18/24 16:34 20:42 06:30 Glucose 89 POC Glucose 117 H 123 H 04/18/24 04/18/24 07:36 11:42 Glucose POC Glucose 106 H 182 H OUTPATIENT ANTIDIABETIC REGIMEN: * Insulin glargine 48 units QHS * Metformin 1 g BID * Ozempic 2 mg SQ once weekly * Jardiance 25 mg once daily * A1c 6.5% 04/10/24 ASSESSMENT: 04/18 * BSGs starting to rise today (high of 182), but overall pretty well controlled considering dexamethasone also on board. * Pt received 49 units of insulin yesterday * 40 units of glargine last night * 9 units of aspart * Will maintain current regimen. 04/17 * KS is here postop for a spine surgery with Dr. Hernandez. Pharmacy has been consulted to manage her T2DM while inpatient. PMH includes CAD, IBS, HLD, HTN, Sleep apnea, and psoriasis. * Pt received dexamethasone 8 mg IVP preop, ordered 6 mg daily for the next 3 days. * Pt ordered diet. * BSGs from this morning are in the 90's but expected to raise with IV dexamethasone and diet on board. PLAN FOR INPATIENT GLYCEMIC CONTROL: * Hold outpatient diabetes medications * Basal insulin * Lantus 40 units SQ QHS * Bolus insulin * NovoLog per scale ACHS or Q6hrs while NPO * Goal Range: Low 110 mg/dL - High 140 mg/dL * Correction Factor: 20 mg/dL/unit * Nutritional / Prandial insulin per carb ratio of 1 unit per 6 grams CHO consumed
--- NOTE | 2024-04-18 16:41 | Hospitalist Progress Note ---
Date of Service April 18, 2024 Assessment & Plan (1) Neurogenic claudication due to lumbar spinal stenosis: (2) Encounter for pre-operative examination: Plan Patient is a 69 yr old female who has a significant past medical history of T2DM, HTN, HLD, aortic stenosis, TY, psoriasis who presents for elective thoracic surgery by Dr. Hernandez. Thoracic/Lumbar spinal stenosis with neurogenic claudication S/P T10-T11 Fusion with L1-L2 hardware removal by Dr. Hernandez on 04/17/2024 Acute blood loss and hemodilution related anemia -- Wound care, activity, DVT prophylaxis as per primary team Pain control Bowel regimen to prevent constipation Monitor CBC DM II, controlled HbA1c 6.5 pre op hold Jardiance and metformin, she is on 48 Units of Toujeo at HS continue lantus/novolog per protocol glycemic pharmacy on board appreciate their management TY: CPAP at HS HTN: BP low Hold lisinopril, HCTZ Continue Coreg with holding parameters Monitor BP HLD: continue statin Valvular heart disease/Enlargement of thoracic aortic: Follows cardiology [facility] Dr. Bosch, pre op echo reviewed. Depression: Continue Cymbalta and amitriptyline DVT Px: per primary team CODE STATUS FULL CODE Admission and Anticipated Discharge Date Admission Date: April 17, 2024 Subjective Patient is seen and examined at bedside States having back pain at surgical site No BM today Denies any chest pain, dyspnea, nausea, vomiting, abdominal pain No other complaints Review of Systems Review of Systems: All systems reviewed & are unremarkable except as noted in Subjective Physical Exam Physical Exam: Physical Exam: Vitals signs as noted above General Appearance:Obese, no apparent distress Head: normocephalic, Atraumatic Eyes: normal inspection, EOMI Neck: supple, Trachea midline Respiratory/Chest: Normal breath sounds, CTA, No accessory muscle use Cardiovascular: S1, S2, No murmur Abdomen/GI:Soft, Non tender, Bowel sounds present Back:+Surgical site in dressing Extremities/Musculoskeletal:normal inspection, no edema Neurologic/Psych:AAOX3, grossly no focal neurological deficits Skin: normal color, warm Results & Data Results & Data Vital Signs (Past 12 Hours) Vital Signs Temp Pulse Resp BP Pulse Ox O2 Del Method O2 Flow Rate 04/18/24 15:02 36.7 C 82 16 116/76 95 Nasal Cannula 2.0 04/18/24 12:00 37.8 C H 99 H 16 132/89 94 Nasal Cannula 04/18/24 11:21 36.8 C 95 H 18 107/69 95 Nasal Cannula 1.0 04/18/24 07:33 36.5 C 100 H 18 109/70 98 Nasal Cannula 2.0 Laboratory Results Short CBC 04/18/24 Range/Units 06:30 WBC 12.44 H (4.8-10.8) K/ul Hgb 10.2 L (12.0-16.0) g/dl Hct 31.7 L (37.0-47.0) % Plt Count 227 (130-400) K/uL BMP 04/18/24 06:30 Sodium 141 Potassium 3.7 Chloride 101 Carbon Dioxide 32 BUN 19 Creatinine 0.78 Glucose 89 Calcium 8.3 L
[2024-04-19 07:02] LABS: Hematocrit (blood only) 27.8 % (37.0-47.0); Hemoglobin 8.8 g/dl (12.0-16.0); Mean Corpuscular Hemoglobin 29.4 pg (25.0-34.0); Mean Corpuscular Hgb Conc 31.7 g/dL (32.0-36.0); Mean Platelet Volume 11.3 fL (9.4-12.4); Platelet Count 163 K/uL (130-400); RDW Coefficient of Variation 14.9 % (11.5-14.5); RDW Standard Deviation 51.1 fL (36.4-46.3); Red Blood Count 2.99 M/uL (4.20-5.40); White Blood Count 9.59 K/ul (4.8-10.8)
[2024-04-19 07:25] LABS: BUN Creatinine Ratio 26.2 (10-20); Calcium 8.2 mg/dl (8.6-10.3); Creatinine Clr Calc Pharmacy 95.5 ml/min; Potassium 3.7 mmol/L (3.5-5.1)
[2024-04-19] MEDS ORDERED: SODIUM CHLORIDE 0.9% 500 ML IV SCH (08:00)
--- NOTE | 2024-04-19 08:17 | Orthopedic Progress Note ---
Date of Service April 19, 2024 Assessment & Plan (1) Neurogenic claudication due to lumbar spinal stenosis: Plan: At this time we will continue physical therapy monitor CHERELLE output possibly discharge home tomorrow. Admission and Anticipated Discharge Date Admission Date: April 17, 2024 Subjective Patient's back pain is controlled. Leg pain improved. She struggled with physical therapy secondary to hypotension yesterday. She feels better this morning. Physical Exam Physical Exam: Patient is in the chair at the bedside. She is comfortable. Discussed when to testing. Results & Data Vital Signs (Past 12 Hours) Vital Signs Temp Pulse Resp BP Pulse Ox O2 Del Method O2 Flow Rate 04/19/24 07:36 97 H 96 Nasal Cannula 2 04/19/24 07:30 36.4 C L 85 18 106/63 87 L Room Air 04/18/24 20:24 36.7 C 79 18 111/72 93 Room Air
[2024-04-19] MEDS: CALCIUM 600MG + VIT D 400 IU TAB PO SCH (09:40)
[2024-04-19] MEDS: SODIUM CHLORIDE 0.9% 500 ML IV ONE (10:18)
--- NOTE | 2024-04-19 12:21 | Hospitalist Progress Note ---
Date of Service April 19, 2024 Assessment & Plan (1) Neurogenic claudication due to lumbar spinal stenosis: (2) S/P spinal surgery: Plan [place] Finch is a 69y/o F with PMHx significant for T2DM, HTN, HLD, aortic stenosis, CKD stage III, TY and psoriasis who was referred to our service for post-operative medical management after undergoing T10-L1 decompression and fusion, L1-L2 hardware removal performed by Dr. Hernandez on 04/17/2024. Neurogenic Claudication 2/2 Lumbar Spinal Stenosis S/P Spinal Surgery: POD #2 s/p T10-L1 decompression and fusion, L1-L2 hardware removal with Dr. Hernandez. Per ortho for pain control, wound care, anticoagulation and activities. Continue incentive spirometry, PT/OT when appropriate as per ortho team. Post-Operative Acute Blood Loss Anemia: Likely dilutional component contributing as well. Pre-op Hgb unknown. Hgb 10.2 yesterday --> 8.8 today. Transfuse blood products PRN for Hgb <7. Monitor daily CBC. Post-Operative Hypotension: Patient with persistent relative hypotension post-operatively. Continue to hold lisinopril-HCTZ. Held off on Coreg dose this AM. 500cc NSS bolus ordered due to BP of 106/63 this AM. Monitor BP closely. DM Type II: Hgb A1c was 6.5% pre-operatively. Hold home Jardiance and metformin. She is on 48 units of Toujeo HS at home. Continue Lantus/Novolog protocol while inpatient. BSG checks ACHS. Glycemic pharmacy on board, appreciate their management recommendations. Valvular Heart Disease/Enlargement of Thoracic Aorta: Follows with [facility], Dr. Pasha Bosch. Pre-operative echocardiogram reviewed. Other Chronic Medical Conditions: Depression, HLD --> Can continue home medications for these specific conditions. Continue CPAP HS for TY. DVT Prophylaxis: SCDs/TEDs as per primary service. Code Status: FULL CODE PCP: Sirisha Gonzalez PA-C [[facility]] Dispo: Admitted in Med/Surg - Possible discharge home tomorrow via primary service per discussion with the patient this morning. We will follow the patient with you during their hospital stay. You can reach a member of the [facility] via [employer]. Patient seen in collaboration with Dr. Andrade. Please see addendum. I spent a total of 40 minutes coordinating, documenting, and providing care for this patient excluding time spent in the performance of separately billed services. This included personally reviewing all current laboratories and imaging studies, medical reconciliation, outpatient chart review and discussion with specialists. This chart was completed in part utilizing Speech Voice Recognition Software. Grammatical errors, random word insertions, pronoun errors, and incomplete sentences are an occasional consequence of this system due to software limitations, ambient noise, and hardware issues. Any formal questions or concerns about the content, text, or information contained within the body of this dictation should be directly addressed to the provider for clarification. Admission and Anticipated Discharge Date Admission Date: April 17, 2024 Supervising Physician Co-Signing Physician Notes I have seen and examined the patient at bedside. Discussed the case with the collaborating advanced practitioner. I agree with the documentation as above. I have reviewed and confirmed the patients medical history, the findings on physical examination, and the patients diagnosis and treatment plan with Lois Chirinos PA-C and agree with the information documented. Note has been edited as needed. Reports transient dizziness this morning Sitting in chair during my encounter Still has pain at surgical site No other complaints today Held Coreg this morning due to low BP Noted postoperative acute blood loss anemia. No indication for transfusion currently Continue bowel regimen to prevent constipation Continue to hold antihypertensives given low BP Will give IV fluids to help with blood pressure Subjective Patient with some lightheadedness this morning but denies any falls or visual changes. Discussed with her that her lightheadedness is likely related to her hypotension this morning. Agreeable to trying a fluid bolus and holding her home BP medications for now until her BP improves. Review of Systems Review of Systems: At least ten systems reviewed and negative, except as noted in the subjective section. Physical Exam Physical Exam: General: WD/WN, vitals as above, NAD, on toilet with therapist support, pleasant, conversing appropriately. A+Ox3, euthymic affect. HEENT: Normocephalic, atraumatic. PERRL, conjunctivae normal, anicteric sclerae. External ear and nose normal, oropharynx normal. Respiratory: Normal respiratory effort, lungs clear to auscultation, no wheeze, rales, rhonchi. No accessory muscle use. Cardiovascular: Regular rate, rhythm, no murmur, normal peripheral pulses, no BLE edema. Vessels: No JVD. Abdomen/GI: Normal bowel sounds, soft, nontender, no hepatosplenomegaly. Extremities/Musculoskeletal: No cyanosis or clubbing, extremities motor strength intact, moves all extremities. Neurologic: EOMI, no focal deficits, CN's II-XI not formally tested but appear grossly intact bilaterally. Skin: No rashes, normal color, warm/dry. Surgical dressing dry and intact. CHERELLE drain x 1 intact and draining serosanguineous output. Results & Data Results & Data Vital Signs (Past 12 Hours) Vital Signs Temp Pulse Resp BP Pulse Ox O2 Del Method O2 Flow Rate 04/19/24 10:45 36.5 C 89 18 108/68 96 Nasal Cannula 04/19/24 09:31 2 04/19/24 07:36 97 H 96 Nasal Cannula 2 04/19/24 07:30 36.4 C L 85 18 106/63 87 L Room Air Laboratory Results Short CBC 04/19/24 Range/Units 06:20 WBC 9.59 (4.8-10.8) K/ul Hgb 8.8 L (12.0-16.0) g/dl Hct 27.8 L (37.0-47.0) % Plt Count 163 (130-400) K/uL BMP 04/19/24 06:20 Sodium 140 Potassium 3.7 Chloride 103 Carbon Dioxide 34 H BUN 16 Creatinine 0.61 Glucose 129 H Calcium 8.2 L
[2024-04-19] MEDS: MAGNESIUM HYDROXIDE SUSP 30 ML UDC PO PRN (13:05)
[2024-04-19] MEDS: bisacodyL 10 MG SUPP PR PRN (18:39)
[2024-04-20] MEDS: DOCUSATE SODIUM/SENNA 50/8.6MG TAB PO PRN (05:21)
[2024-04-20 07:00] LABS: Hematocrit (blood only) 26.5 % (37.0-47.0); Hemoglobin 8.6 g/dl (12.0-16.0); Mean Corpuscular Hemoglobin 29.5 pg (25.0-34.0); Mean Corpuscular Hgb Conc 32.5 g/dL (32.0-36.0); Mean Corpuscular Volume 90.8 fL (80.0-100.0); Mean Platelet Volume 11.7 fL (9.4-12.4); Platelet Count 202 K/uL (130-400); RDW Coefficient of Variation 14.9 % (11.5-14.5); Red Blood Count 2.92 M/uL (4.20-5.40); White Blood Count 11.67 K/ul (4.8-10.8)
[2024-04-20 07:36] LABS: BUN Creatinine Ratio 22.6 (10-20); Calcium 8.3 mg/dl (8.6-10.3); Creatinine Clr Calc Pharmacy 93.9 ml/min; Phosphorus 2.3 mg/dl (2.5-4.9); Potassium 3.8 mmol/L (3.5-5.1)
--- NOTE | 2024-04-20 09:23 | Orthopedic Progress Note ---
Date of Service April 20, 2024 Assessment & Plan (1) Neurogenic claudication due to lumbar spinal stenosis: Plan: Patient is stable at this point. She is experiencing some abdominal discomfort has not yet had a bowel movement. We are going to increase her bowel regimen at this point and encouraged her to walk we will continue the GI DVT prophylaxis and pain control measures. If she does well today and has a bowel movement would be able to send her home tomorrow. Admission and Anticipated Discharge Date Admission Date: April 17, 2024 Subjective Patient was seen bedside in room 314. She is postop day #3. Her pain is well- controlled. She has been ambulating with physical therapy. Her main concern is that she has not had a bowel movement. She is having some discomfort in the abdomen and feels bloated. She has not really been passing gas. She denies any other numbness, tingling, or paresthesias. Physical Exam Physical Exam: On exam she is seated in a chair. She does have some tenderness in the abdomen but no focal findings no acute abdominal findings. Her strength and sensation are both intact. Her calves are supple and nontender. Results & Data Vital Signs (Past 12 Hours) Vital Signs Temp Pulse Resp BP Pulse Ox O2 Del Method 04/20/24 07:05 36.6 C 87 18 110/79 94 Room Air
--- NOTE | 2024-04-20 11:49 | Hospitalist Progress Note ---
Date of Service April 20, 2024 Assessment & Plan (1) Neurogenic claudication due to lumbar spinal stenosis: (2) S/P spinal surgery: (3) Acute blood loss anemia: (4) Constipation: Plan [place] Finch is a 69y/o F with PMHx significant for T2DM, HTN, HLD, aortic stenosis, CKD stage III, TY and psoriasis who was referred to our service for post-operative medical management after undergoing T10-L1 decompression and fusion, L1-L2 hardware removal performed by Dr. Hernandez on 04/17/2024. Neurogenic Claudication 2/2 Lumbar Spinal Stenosis S/P Spinal Surgery: POD #3 s/p T10-L1 decompression and fusion, L1-L2 hardware removal with Dr. Hernandez. Per ortho for pain control, wound care, anticoagulation and activities. Continue incentive spirometry, PT/OT when appropriate as per ortho team. Post-Operative Acute Blood Loss Anemia: Likely dilutional component contributing as well. Pre-op Hgb unknown. Hgb 10.2 on 04/18 --> 8.8 yesterday --> 8.6 today. Transfuse blood products PRN for Hgb <7. Monitor daily CBC. Constipation: Patient with some constipation and bloating this morning. Mentions she only passed one small, hard stool so far. Started her on daily Miralax and Senokot S BID. KUB in AM to monitor stool burden. May require an enema if she doesn't pass a BM overnight - monitor. Post-Operative Hypotension: Patient with rather persistent relative hypotension post-operatively. Continue to hold lisinopril-HCTZ. Coreg dose held again this AM as her BP was 110/79. Valvular Heart Disease/Enlargement of Thoracic Aorta: Follows with [facility] Cardiology, Dr. Pasha Bosch. Pre-operative echocardiogram reviewed. DM Type II: Hgb A1c was 6.5% pre-operatively. Hold home Jardiance and metformin. She is on 48 units of Toujeo HS at home. Continue Lantus/Novolog protocol while inpatient. BSG checks ACHS. Glycemic pharmacy on board, appreciate their management recommendations. Other Chronic Medical Conditions: Depression, HLD --> Can continue home medications for these specific conditions. Continue CPAP HS for TY. DVT Prophylaxis: SCDs/TEDs as per primary service. Code Status: FULL CODE PCP: Sirisha Gonzalez PA-C [[facility]] Disposition: Admitted in Med/Surg - Likely discharge home tomorrow via primary service if her constipation improves and she passes a BM. Will need PCP follow- up appointment to monitor her BP. We will follow the patient with you during their hospital stay. You can reach a [facility] via [employer]. Patient seen in collaboration with Dr. Andrade. Please see addendum. I spent a total of 35 minutes coordinating, documenting, and providing care for this patient excluding time spent in the performance of separately billed services. This included personally reviewing all current laboratories and imaging studies, medical reconciliation, outpatient chart review and discussion with specialists. This chart was completed in part utilizing Speech Voice Recognition Software. Grammatical errors, random word insertions, pronoun errors, and incomplete sent ences are an occasional consequence of this system due to software limitations, ambient noise, and hardware issues. Any formal questions or concerns about the content, text, or information contained within the body of this dictation should be directly addressed to the provider for clarification. Admission and Anticipated Discharge Date Admission Date: April 17, 2024 Supervising Physician Co-Signing Physician Notes I have seen and examined the patient at bedside. Discussed the case with the collaborating advanced practitioner. I agree with the documentation as above. I have reviewed and confirmed the patients medical history, the findings on physical examination, and the patients diagnosis and treatment plan with Lois Chirinos PA-C and agree with the information documented. Note has been edited as needed. Reports constipation today Still has back pain at surgical site Denies any significant dizziness today Blood pressure better today Continue bowel regimen Also on Linzess Will obtain KUB tomorrow if no resolution of constipation Continue to hold lisinopril/HCTZ Monitor blood pressure closely Subjective Patient with some constipation and bloating this morning. Mentions she only passed one small, hard stool so far. Mentions her pain is more manageable. She denies any urinary issues and she ate breakfast this morning without issue. Encouraged her to get up and moving around as this can help stimulate the bowels. Will also put her on a scheduled bowel regimen. Review of Systems Review of Systems: At least ten systems reviewed and negative, except as noted in the subjective section. Physical Exam Physical Exam: General: WD/WN, vitals as above, NAD, sitting in chair at bedside, pleasant, conversing appropriately. A+Ox3, euthymic affect. HEENT: Normocephalic, atraumatic. PERRL, conjunctivae normal, anicteric sclerae. External ear and nose normal, oropharynx normal. Respiratory: Normal respiratory effort, lungs clear to auscultation, no wheeze, rales, rhonchi. No accessory muscle use. Cardiovascular: Regular rate, rhythm, no murmur, normal peripheral pulses, no BLE edema. Vessels: No JVD. Abdomen/GI: Normal bowel sounds, bloated but soft, nontender, no hepatosplenomegaly. Extremities/Musculoskeletal: No cyanosis or clubbing, extremities motor strength intact, moves all extremities. Neurologic: EOMI, no focal deficits, CN's II-XI not formally tested but appear grossly intact bilaterally. Skin: No rashes, normal color, warm/dry. Surgical dressing dry and intact. CHERELLE drain x 1 intact and draining serosanguineous output. Results & Data Results & Data Vital Signs (Past 12 Hours) Vital Signs Temp Pulse Resp BP Pulse Ox O2 Del Method 04/20/24 07:05 36.6 C 87 18 110/79 94 Room Air Laboratory Results Short CBC 04/20/24 Range/Units 06:12 WBC 11.67 H (4.8-10.8) K/ul Hgb 8.6 L (12.0-16.0) g/dl Hct 26.5 L (37.0-47.0) % Plt Count 202 (130-400) K/uL BMP 04/20/24 06:12 Sodium 140 Potassium 3.8 Chloride 104 Carbon Dioxide 32 BUN 14 Creatinine 0.62 Glucose 147 H Calcium 8.3 L (4) Constipation Constipation type: unspecified constipation type Qualified Code(s): K59.00 - Constipation, unspecified
[2024-04-20] MEDS: DOCUSATE SODIUM/SENNA 50/8.6MG TAB PO SCH (12:39)
[2024-04-20 20:26] VITALS: RESP 16; O2SAT 95
[2024-04-21 06:37] LABS: Hematocrit (blood only) 26.5 % (37.0-47.0); Hemoglobin 8.8 g/dl (12.0-16.0); Mean Corpuscular Hemoglobin 29.7 pg (25.0-34.0); Mean Corpuscular Hgb Conc 33.2 g/dL (32.0-36.0); Mean Corpuscular Volume 89.5 fL (80.0-100.0); Mean Platelet Volume 11.4 fL (9.4-12.4); Platelet Count 257 K/uL (130-400); RDW Coefficient of Variation 14.7 % (11.5-14.5); RDW Standard Deviation 47.9 fL (36.4-46.3); Red Blood Count 2.96 M/uL (4.20-5.40); White Blood Count 10.07 K/ul (4.8-10.8)
[2024-04-21 06:40] LABS: BUN Creatinine Ratio 21.3 (10-20); Calcium 8.7 mg/dl (8.6-10.3); Creatinine Clr Calc Pharmacy 77.6 ml/min; Phosphorus 3.4 mg/dl (2.5-4.9); Potassium 3.9 mmol/L (3.5-5.1)
[2024-04-21 06:57] VITALS: BP 150/84; PULSE 78; TEMP 97.5
--- NOTE | 2024-04-21 08:45 | Discharge Summary ---
Date of Service April 21, 2024 Admission HPI Per Admitting Provider This is a 69-year-old female presents with chronic persistent back and leg pain after failing course of nonoperative care she is here for surgical intervention. Discharge Data Consultations 04/17/24 12:55 Consult Hospitalist Routine Procedures Performed Operation Date: 04/17/24 07:45 Actual Procedures p T10-L1 Decompression and Fusion, Spinal Cord Monitoring - Hung Hernandez DO s L1-L2 Hardware Removal, - Hung Hernandez DO Hospital Course (1) Neurogenic claudication due to lumbar spinal stenosis: Patient is a pleasant 69-year-old female with history physical examination and radiographic images consistent with the above-mentioned diagnosis. For this reason she was brought to the operating room and had undergone a thoracolumbar decompression and fusion with Dr. Hernandez. She left the operating room CHERELLE drain and Junior in place and was transferred to the orthopedic floor. She was placed on GI and DVT prophylaxis. She is seen by physical therapy for ambulation and gait training. She had issues with constipation but this has since resolved. On 04/21/2024 she was deemed safe for home discharge. Her discharge instructions were to change her dressing once daily till there is no drainage once there is no drainage she can leave it open to air and may start showering. She was to use a wheeled walker for ambulation for stability. She is avoid any full bending at the waist and should lift anything heavier than 5 to 7 pounds. Her follow-up care was to be in 2 weeks or sooner if she developed any increased drainage from the incision fevers chills or increasing pain in her legs.
--- NOTE | 2024-04-21 09:13 | XRay Report ---
XR KUB/Abdomen 1 view CLINICAL HISTORY: Constipation TECHNIQUE: 1 view of the abdomen was obtained. Comparison: None available at the time of this dictation. FINDINGS: Lung bases are unremarkable. Degenerative changes are seen in the visualized skeleton. Posterior fixa tion hardware is seen in the lumbar spine. The bowel gas pattern is nonobstructive. Small stool burde n is seen. IMPRESSION: Small stool burden without evidence of fecal impaction. ACT 112: Negative or not required by law. Electronically signed by: Sherif Torres M.D. 04/21/2024 9:12 AM
--- NOTE | 2024-04-21 09:59 | Hospitalist Progress Note ---
Date of Service April 21, 2024 Assessment & Plan (1) Neurogenic claudication due to lumbar spinal stenosis: (2) S/P spinal surgery: (3) Acute blood loss anemia: (4) Constipation: Plan [place] Finch is a 69y/o F with PMHx significant for T2DM, HTN, HLD, aortic stenosis, CKD stage III, TY and psoriasis who was referred to our service for post-operative medical management after undergoing T10-L1 decompression and fusion, L1-L2 hardware removal performed by Dr. Hernandez on 04/17/2024. Neurogenic Claudication 2/2 Lumbar Spinal Stenosis S/P Spinal Surgery: POD #4 s/p T10-L1 decompression and fusion, L1-L2 hardware removal with Dr. Hernandez. Per ortho for pain control, wound care, anticoagulation and activities. Continue incentive spirometry, PT/OT when appropriate as per ortho team. Continue bowel regimen - small BM this morning Post-Operative Acute Blood Loss Anemia in setting of surgical/post surgical blood loss and dilutional component: Likely dilutional component contributing as well. Pre-op Hgb unknown. Hgb 10.2 on 04/18 --> Stable at 8.8 on day of discharge Chronic Constipation: KUB small stool burden, small BM today continue linzess and stool softeners while on narcotic pain medications encourage oral hydration Post-Operative Hypotension HTN at baseline resolved, ok to resume antihypertensives at discharge DM Type II: Hgb A1c was 6.5% pre-operatively. Hold home Jardiance and metformin. She is on 48 units of Toujeo HS at home. Continue home regimen when discharge TY: CPAP at HS HLD: Chronic, stable, continue statin Valvular heart disease/Enlargement of thoracic aortic: follows cardiology [facility] Dr. Bosch, pre op echo reviewed. Depression: chronic, stable on Cymbalta and amitriptyline DVT ppx: per primary FULL CODE PCP: Sirisha Gonzalez PA-C Dispo: Discharge to home today Pt was seen and examined in collaboration with Dr. Andrade, please see addendum Thank you for this consultation. We will follow the patient with you during their hospital stay. You can reach a member of the [facility] Hospitalist Team 24/01 via hospitalist role on tiger text. I spent a total of 35 minutes minutes reviewing notes, outpatient records, labs, medication, coordinating, documenting and providing care for this patient excluding time spent in the performance of separately billed services. DVT Prophylaxis: SCDs/TEDs as per primary service. Code Status: FULL CODE PCP: Sirisha Gonzalez PA-C [[facility]] Disposition: Admitted in Med/Surg - Likely discharge home tomorrow via primary service if her constipation improves and she passes a BM. Will need PCP follow- up appointment to monitor her BP. We will follow the patient with you during their hospital stay. You can reach a member of the [facility] Hospitalist Team 24/01 via [email or web address]. Patient seen in collaboration with Dr. Andrade. Please see addendum. I spent a total of 35 minutes coordinating, documenting, and providing care for this patient excluding time spent in the performance of separately billed services. This included personally reviewing all current laboratories and imaging studies, medical reconciliation, outpatient chart review and discussion with specialists. Admission and Anticipated Discharge Date Admission Date: April 17, 2024 Supervising Physician Co-Signing Physician Notes I have seen and examined the patient at bedside. Discussed the case with the collaborating advanced practitioner. I agree with the documentation as above. I have reviewed and confirmed the patients medical history, the findings on physical examination, and the patients diagnosis and treatment plan with Nata Schmid PA-C and agree with the information documented. Note has been edited as needed. States feeling better today Had bowel movement Back pain is controlled Drain removed, dressing changed No dizziness today Resume home antihypertensives on discharge Advised to follow-up with PCP in 1 week Subjective NAEO. Pt had small BM. Denies f/c/s, chest pain, sob, n/v. She is tolerating breakfast. Review of Systems Review of Systems: All systems reviewed & are unremarkable except as noted in HPI & below Physical Exam Physical Exam: Gen: WD/WN, NAD, A&O x3 HEENT: Normocephalic, atraumatic, conjunctivae moist, sclerae anicteric, mucous membranes moist. Lung: Clear to Auscultation bilaterally, no wheezes/rales/rhonchi Heart: Regular rate, regular rhythm, 1/6 ANNA LUSB, rubs, or gallops Abdomen: Soft, NT, ND +BS x 4 Extremities: No edema Skin: Warm, no rash, negative turgor. Results & Data Results & Data Vital Signs (Past 12 Hours) Vital Signs Temp Pulse Resp BP Pulse Ox O2 Del Method 04/21/24 06:55 36.4 C L 78 16 150/84 H 95 Room Air Laboratory Results Short CBC 04/21/24 Range/Units 05:36 WBC 10.07 (4.8-10.8) K/ul Hgb 8.8 L (12.0-16.0) g/dl Hct 26.5 L (37.0-47.0) % Plt Count 257 (130-400) K/uL BMP 04/21/24 05:36 Sodium 138 Potassium 3.9 Chloride 100 Carbon Dioxide 32 BUN 16 Creatinine 0.75 Glucose 144 H Calcium 8.7 Medications Administered Current Inpatient Medications Acetaminophen (Acetaminophen 500 Mg Tab) 1,000 mg PO Q8H PRN PRN Reason: MILD Pain Scale 1,2,3 & Pre PT Stop: 05/17/24 12:54 Last Admin: 04/19/24 13:04 Dose: 1,000 mg Al Hydrox/Mg Hydrox/Simethicone (Aluminum/Magnesium Susp 30 Ml Udc) 30 ml PO Q6H PRN PRN Reason: Dyspepsia Stop: 05/17/24 12:54 Amitriptyline HCl (Amitriptyline Hcl 50 Mg Tab) 50 mg PO HS ASAD Stop: 05/17/24 20:59 Last Admin: 04/20/24 19:29 Dose: 50 mg Aspirin (Aspirin 81 Mg Ectab) 81 mg PO QPM ASAD Stop: 05/17/24 20:59 Last Admin: 04/20/24 19:31 Dose: 81 mg Baclofen (Baclofen 20 Mg Tab) 20 mg PO TID ASAD Stop: 05/17/24 13:59 Last Admin: 04/21/24 08:08 Dose: 20 mg Bisacodyl (Bisacodyl 10 Mg Supp) 10 mg ID DAILY PRN PRN Reason: Constipation Stop: 05/17/24 12:54 Last Admin: 04/19/24 18:39 Dose: 10 mg Calcium/Vitamin D (Calcium 600mg + Vit D 400 Iu Tab) 1 tab PO BID ASAD Stop: 05/19/24 08:59 Last Admin: 04/21/24 08:08 Dose: 1 tab Carvedilol (Carvedilol 3.125 Mg Tab) 3.125 mg PO BIDM ASAD Stop: 05/17/24 16:59 Last Admin: 04/21/24 08:08 Dose: 3.125 mg Dextrose (Dextrose 50% 50 Ml Syringe) 25 - 50 ml IV UD PRN; Protocol PRN Reason: Hypoglycemia Protocol Stop: 05/17/24 13:01 Diphenhydramine HCl (Diphenhydramine Capsule 25 Mg Cap) 25 mg PO BID ASAD Stop: 05/17/24 20:59 Last Admin: 04/21/24 08:08 Dose: 25 mg Diphenhydramine HCl (Diphenhydramine Capsule 25 Mg Cap) 25 mg PO Q6H PRN PRN Reason: Allergic Rhinitis/Insomnia Stop: 05/17/24 12:54 Duloxetine HCl (Duloxetine Hcl 60 Mg Cap) 60 mg PO BID [facility] Stop: 05/17/24 20:59 Last Admin: 04/21/24 08:08 Dose: 60 mg Famotidine (Famotidine 20 Mg Tab) 20 mg PO Q12H PRN PRN Reason: Dyspepsia Stop: 05/17/24 12:54 Gabapentin (Gabapentin 400 Mg Cap) 400 mg PO TID [facility] Stop: 05/17/24 13:59 Last Admin: 04/21/24 08:08 Dose: 400 mg Glucagon (Glucagon For Inj 1 Mg Vial) 1 mg SQ UD PRN; Protocol PRN Reason: Hypoglycemia Protocol Stop: 05/17/24 13:01 Glucose (Glucose 40% Gel 15 Gm Tube) 15 - 30 gm PO UD PRN; Protocol PRN Reason: Hypoglycemia Protocol Stop: 05/17/24 13:01 Glucose (Glucose 10 Tab/Tube) 4 - 8 tab PO UD PRN; Protocol PRN Reason: Hypoglycemia Treatment Stop: 05/17/24 13:01 Lisinopril/HCTZ (Lisinopril/Hctz 20/25mg 1 Tab) 0.5 tab PO QAM [facility] Stop: 05/18/24 08:59 Hydromorphone HCl (Hydromorphone Inj 0.5 Mg/0.5 Ml Syr) 0.5 mg IV Q3H PRN PRN Reason: MODERATE Pain (Scale 4,5,6) & Pre PT Stop: 05/01/24 12:54 Last Admin: 04/17/24 13:57 Dose: 0.5 mg Hydromorphone HCl (Hydromorphone Inj 1 Mg/Ml Syringe) 1 mg IV Q3H PRN PRN Reason: SEVERE Pain (Scale 7,8,9,10) Stop: 05/01/24 12:54 Last Admin: 04/17/24 18:16 Dose: 1 mg Hydroxyzine HCl (Hydroxyzine Hcl 25 Mg Tab) 25 mg PO Q8H PRN PRN Reason: Anxiety Stop: 05/17/24 12:54 Promethazine HCl (Phenergan) 12.5 mg in 50.5 mls @ 202 mls/hr IV Q6H PRN PRN Reason: Nausea And Vomiting Stop: 05/17/24 12:54 Influenza Virus Vaccine Quadrival (Do Not Administer Flu Vaccine) 1 each N/A PRN PRN PRN Reason: Notification Stop: 05/17/24 12:54 Insulin Aspart (Insulin Aspart Per Unit Charge) 0 units SC [facility] Stop: 05/17/24 16:29 Last Admin: 04/21/24 08:11 Dose: 12 units Insulin Glargine (Lantus Per Unit Charge) 40 units SQ HS ASAD Stop: 05/17/24 20:59 Last Admin: 04/20/24 20:30 Dose: 40 units Linaclotide (Linaclotide 145 Mcg Capsule) 290 mcg PO 0700 ASAD Stop: 05/18/24 06:59 Last Admin: 04/21/24 05:49 Dose: 290 mcg Lorazepam (Lorazepam 0.5 Mg Tab) 0.5 mg PO Q8H PRN PRN Reason: Sedation/Anxiety Stop: 05/17/24 12:54 Lorazepam (Lorazepam 2 Mg/1 Ml Vial) 0.5 mg IV Q8H PRN PRN Reason: Sedation/Anxiety Stop: 05/17/24 12:54 Lovastatin (Lovastatin 20 Mg Tab) 80 mg PO HS ASAD Stop: 05/17/24 20:59 Last Admin: 04/20/24 19:29 Dose: 80 mg Magnesium Hydroxide (Magnesium Hydroxide Susp 30 Ml Udc) 30 ml PO Q24H PRN PRN Reason: Constipation Stop: 05/17/24 12:54 Last Admin: 04/21/24 05:49 Dose: 30 ml Magnesium Oxide (Magnesium Oxide 400 Mg Tab) 800 mg PO QPM ASAD Stop: 05/17/24 20:59 Last Admin: 04/20/24 19:30 Dose: 800 mg Metoclopramide HCl (Metoclopramide Hcl Inj 5 Mg/Ml 2 Ml Vial) 10 mg IV Q6H PRN PRN Reason: Nausea &/or Vomiting Stop: 05/17/24 12:54 Miscellaneous (Carbohydrates For Hypoglycemia ) 15 - 30 gm PO UD PRN PRN Reason: Hypoglycemia Protocol Stop: 05/17/24 13:01 Miscellaneous Information (Pharmacy Glycemic Mgmt Consult) 1 each N/A UD PRN PRN Reason: Consult Stop: 05/17/24 12:54 Montelukast Sodium (Montelukast Sodium 10 Mg Tablet) 10 mg PO QPM ASAD Stop: 05/17/24 20:59 Last Admin: 04/20/24 19:31 Dose: 10 mg Naloxone HCl (Naloxone Hcl 0.4 Mg/1 Ml Vial/Carp) 0.1 mg IV Q5M PRN PRN Reason: Oversedation/Resp depression Stop: 05/17/24 12:54 Ondansetron HCl (Ondansetron Inj 2 Mg/Ml 2 Ml Vial) 4 mg IV Q6H PRN PRN Reason: Nausea &/or Vomiting Stop: 05/17/24 12:54 Last Admin: 04/17/24 13:57 Dose: 4 mg Ondansetron HCl (Ondansetron 4 Mg Od Tab) 4 mg PO Q6H PRN PRN Reason: Nausea Stop: 05/17/24 12:54 Oxycodone HCl (Oxycodone Hcl Ir 5 Mg Tab (Immediate Release)) 5 - 10 mg PO Q4H PRN PRN Reason: Pain & Pre PT Stop: 05/01/24 12:54 Last Admin: 04/21/24 08:34 Dose: 10 mg Pantoprazole Sodium (Pantoprazole 40 Mg Tab) 40 mg PO BID ASAD; Protocol Stop: 05/17/24 20:59 Last Admin: 04/21/24 08:08 Dose: 40 mg Pneumococcal Polyvalent Vaccine (Do Not Administer Pneumococcal Vaccine) 1 each N/A PRN PRN PRN Reason: Notification Stop: 05/17/24 12:54 Polyethylene Glycol (Polyethylene (Miralax) 17 Gm Pack) 17 gm PO Q6 ASAD Stop: 05/18/24 05:59 Last Admin: 04/21/24 05:49 Dose: 17 gm Senna/Docusate Sodium (Docusate Sodium/Senna 50/8.6mg Tab) 2 tab PO BID ASAD Stop: 05/20/24 11:59 Last Admin: 04/21/24 08:12 Dose: 2 tab Sodium Biphosphate/Sodium Phosphate (Sod Phosphate/Sod Biphosphate Enema 132 Ml Btl) 132 ml ID ONE PRN PRN Reason: Constipation Stop: 05/17/24 12:54 Tramadol HCl (Tramadol Hcl 50 Mg Tablet) 50 - 100 mg PO Q4H PRN PRN Reason: Moderate-Severe pain & Pre PT Stop: 05/17/24 12:54 Vitamin D (Cholecalciferol 125 Mcg (5,000 Units) Tab) 125 mcg PO QAM ASAD Stop: 05/18/24 08:59 Last Admin: 04/21/24 08:08 Dose: 125 mcg (4) Constipation Constipation type: unspecified constipation type Qualified Code(s): K59.00 - Constipation, unspecified
== END 2024-04-21 13:06 | disposition home or self-care (01) | DRG 427 ==
LOC: ASU 06:20 → 3E 12:52